=== PATIENT | female | born 1940 | race Caucasian/White ===

== ENCOUNTER 2016-06-25 23:40 | Inpatient (IN) | payer BC ==
--- OUTSIDE RECORDS SUMMARY | 2016-06-26 00:31 | XMS REPORT | Continuity of Care Document ---
:1940 Author Organization [facility] ([facility]) Address [address] [place] [address] Phone [phone] Care Team Providers Name Role Phone Sridhar Terrazas Primary Care Provider [phone] Source Comments This disclosure is being made pursuant to the Care Everywhere program, applicable federal and state laws, and may not contain all informaitonavailable regarding this patient.[facility] ([facility]) Active Allergies and Adverse Reactions Allergen Noted Date Severity Reactions Comments Codeine Phosphate 08/07/2008 Nausea & Vomiting Codeine Sulfate 08/07/2008 Nausea & Vomiting Hydrochlorothiazide 08/07/2008 OTHER Insomnia Iron 08/07/2008 OTHER Insomnia Latex 08/07/2008 Rash Moexipril 08/07/2008 Nausea & Vomiting Penicillins 08/07/2008 OTHER Insomnia Sulfamethoxazole-Trimethoprim 08/07/2008 Nausea & Vomiting Current Medications Prescription Sig. Disp. Refills Start Date End Date Status pregabalin (LYRICA) Take 200 mg by Active 200 mg capsule mouth 2 times daily. oxyCODONE-acetaminophe Take 1 tablet by Active n 10-325 mg per tablet mouth every 8 hours as needed for Pain. diphenoxylate-atropine Take 1 tablet by Active 2.5-0.025 mg per mouth 4 times tablet daily as needed for Diarrhea. ammonium lactate 12 % Apply topically 227 g 11 02/09/2016 Active lotion twice daily. Rub into affected area well. Wash legs daily with diluted Hibiclens. Ensure that the skin between toes is cleansed as well.Pat dry. Apply Lac-Hydrin lotion twice daily to bilateral lower extremities. Weave Interdry AG between the toes on both feet to help wick moisture. lisinopril 20 mg Take 1 tablet (20 30 tablet 11 02/10/2016 Active tablet mg total) by mouth daily. Active Problems Problem Noted Date Morbid obesity 02/03/2016 Cellulitis 02/02/2016 Weakness of right lower extremity 02/02/2016 Pulmonary embolus 10/01/2008 Social History Tobacco Use Types Packs/Day Years Used Date Former Smoker 1.5 3 Smokeless Tobacco: Never Used Tobacco Cessation:Counseling Given: No Comments:quit in Alcohol Use Drinks/Week oz/Week Comments No Last Filed Vital Signs Vital Sign Reading Time Taken Blood Pressure 152/86 02/10/2016 9:00 AM TELEPHONE STATION INSTALLER Pulse 73 02/10/2016 8:44 AM TELEPHONE STATION INSTALLER Temperature 36.8 C (98.3 F) 02/10/2016 8:44 AM TELEPHONE STATION INSTALLER Respiratory Rate 16 02/10/2016 9:00 AM TELEPHONE STATION INSTALLER Height 1.626 m (5' 4") 02/03/2016 12:05 AM TELEPHONE STATION INSTALLER Weight 115 kg (253 lb 8.5 oz) 02/03/2016 12:05 AM TELEPHONE STATION INSTALLER Body Mass Index 43.5 02/03/2016 12:05 AM TELEPHONE STATION INSTALLER Oxygen Saturation 92% 02/10/2016 8:44 AM TELEPHONE STATION INSTALLER Plan of Care Health Maintenance Due Date Last Done Comments Hepatitis B Vaccine (1 of 3 - Primary Series) 1940 Tdap Vaccine 06/15/1950 Lipid Disorder Screening 06/15/1957 Td Vaccine 06/15/1957 Mammogram 1979 Colonoscopy 06/15/1989 Zoster Vaccine 1999 Osteoporosis Screening (DXA Bone Density) 06/15/2004 Pneumococcal Vaccine (1 of 2 - PCV13) 06/15/2004 Influenza Vaccine: Seasonal (Season Ended) 2016 Results from Last 3 Months Not on file
--- OUTSIDE RECORDS SUMMARY | 2016-06-26 00:31 | XMS REPORT | Continuity of Care Document ---
:1940 Author Organization [facility] [place] [address] Care Team Providers Name Role Phone Gregory Abraham Primary Care Provider [phone] Source Comments This disclosure is being made pursuant to the [employer] program and maynot contain all information available regarding this patient.[facility] Active Allergies and Adverse Reactions Allergen Noted Date Severity Reactions Comments Bactrim 03/16/2015 Low Itching Chlorpheniramine Maleate 05/23/2016 Medium Unknown Codeine 03/16/2015 Other (See Comments) Hctz 03/16/2015 Other (See Comments) Iron 03/16/2015 Other (See Comments) Latex 05/23/2016 Medium Unknown Neurontin 03/16/2015 Other (See Comments) Penicillins 03/16/2015 Other (See Comments) Phenylpropanolamine 05/23/2016 Medium Unknown Sulfa Antibiotics 03/16/2015 Other (See Comments) Univasc 03/16/2015 Other (See Comments) Current Medications Be aware that medications may not be up to date as of this document. Alwaysverify current medications with the patient. Prescription Sig. Disp. Refills Start Date End Date Status potassium chloride Take 10 mEq Active (K-TAB, KLOR-CON) 10 by mouth 2 MEQ tablet (two) times daily. acetaminophen Take 500 mg Active (TYLENOL) 500 MG by mouth tablet every 6 (six) hours as needed for Pain. morphine (MS CONTIN) TK 1 T PO Q 0 07/25/2015 Active 15 MG extended 12 H release tablet LYRICA 200 MG capsule Take 200 mg 06/15/2015 Active by mouth 2 (two) times daily. vitamin B-12 Take 100 mcg Active (CYANOCOBALAMIN) 100 by mouth MCG tablet daily. cholecalciferol 96474 2 times a 24 capsule 0 08/24/2015 Active UNITS capsule weeks for 3 months diphenoxylate-atropin Take 1 tablet 30 tablet 1 05/20/2016 Active e (LOMOTIL) 2.5-0.025 by mouth 4 MG per tablet (four) times daily as needed for Diarrhea. losartan (COZAAR) 100 Take 100 mg Active MG tablet by mouth daily. lisinopril Take 20 mg by Active (PRINIVIL,ZESTRIL) 20 mouth daily. MG tablet oxyCODONE-acetaminoph Take 1 tablet 30 tablet 0 06/15/2016 Active en (PERCOCET) 10-325 by mouth MG per tablet every 8 (eight) hours as needed for Pain. allopurinol Take 1 tablet 90 tablet 2 06/15/2016 Active (ZYLOPRIM) 300 MG by mouth tablet daily. furosemide (LASIX) 20 Take 1 tablet 90 tablet 1 06/15/2016 Active MG tablet by mouth daily. allopurinol Take 300 mg Discontinued (ZYLOPRIM) 300 MG by mouth 7 tablet daily. furosemide (LASIX) 20 Take 20 mg by Discontinued MG tablet mouth daily. 7 oxyCODONE-acetaminoph Take 1 tablet 30 tablet 0 05/25/2016 Discontinued en (PERCOCET) 10-325 by mouth 7 MG per tablet every 8 (eight) hours as needed for Pain Earliest Fill Date: 05/25/16. oxyCODONE-acetaminoph Take 1 tablet 30 tablet 0 06/06/2016 Discontinued en (PERCOCET) 10-325 by mouth 7 MG per tablet every 8 (eight) hours as needed for Pain Earliest Fill Date: 06/06/16. clindamycin (CLEOCIN) Take 1 4 capsule 0 06/13/2016 Discontinued 150 MG capsule capsule by 7 mouth 4 (four) times daily as needed. Take ALL 4 tabs at once one hour prior to appt. clindamycin (CLEOCIN) Take 1 16 capsule 0 06/13/2016 150 MG capsule capsule by 7 mouth daily. Take ALL 4 tabs at once one hour prior to appt. allopurinol TAKE ONE 90 tablet 0 06/14/2016 Discontinued (ZYLOPRIM) 300 MG TABLET BY 7 tablet MOUTH ONCE DAILY Active Problems Problem Noted Date Essential hypertension, benign 05/23/2016 Anemia of chronic disease 05/23/2016 CKD (chronic kidney disease) 05/23/2016 Mixed hyperlipidemia 05/23/2016 Senile osteoporosis 08/24/2015 Osteoporosis 08/03/2015 Cervical subluxation 03/16/2015 Neck pain 03/16/2015 Cervical spondylosis without myelopathy 03/16/2015 Subluxation of C4-C5 cervical vertebrae 03/16/2015 Most Recent Encounters Date Type Specialty Providers Description 06/13/2016 Refill Family Medicine Sridhar Terrazas DO 06/13/2016 Refill Family Medicine Sarika Murdock RN Essential hypertension (Primary Dx); Gout of foot, unspecified cause, unspecified chronicity, unspecified laterality 06/13/2016 Refill Family Medicine Sarika Murdock RN 06/06/2016 Refill Family Medicine Pamella Salazar RN 05/25/2016 Refill Family Medicine Sarika Murdock RN 05/23/2016 Abstract Family Medicine Risa Quintanilla RN 05/20/2016 Refill Family Medicine Sarika Murdock RN Social History Tobacco Use Types Packs/Day Years Used Date Former Smoker Smokeless Tobacco: Never Used Alcohol Use Drinks/Week oz/Week Comments No 0 Standard drinks or equivalent 0.0 Last Filed Vital Signs Vital Sign Reading Time Taken Blood Pressure 132/82 08/21/2015 9:14 AM CDT Pulse 72 08/03/2015 10:57 AM CDT Temperature 36.3 C (97.4 F) 03/16/2015 1:03 PM SIDE HEMMER Respiratory Rate 18 03/16/2015 1:03 PM SIDE HEMMER Height 1.626 m (5' 4") 08/21/2015 9:14 AM CDT Weight 103.874 kg (229 lb) 08/21/2015 9:14 AM CDT Body Mass Index 39.29 08/21/2015 9:14 AM CDT Oxygen Saturation - - Plan of Care Date Type Specialty Providers Description 06/27/2016 Appointment Family Medicine Sridhar Terrazas V, [address] [place] [address] [phone] (Fax) Health Maintenance Due Date Last Done Comments Tetanus/Pertussis (1 - Tdap) 06/15/1958 Well Adult Visit 06/15/1989 Zoster Vaccine 60+ 1999 Pneumococcal Low/Medium Risk 65+ (1 of 2 - PCV13) 06/15/2004 Influenza Immunization (#1) 2015 Mammogram 08/13/2016 08/14/2015 Bone Density Completed 06/25/2015 Results from Last 3 Months Not on file
[2016-06-26 00:48] LABS: Hemoglobin 10.9 gm/dL (12.5-16.0); Mean Cell Volume 92.6 fl (78-100); Mean Corpuscular Hemoglobin 29.7 pg (27-31); Mean Corpuscular Hgb Conc 32.1 g/dl (32-36); Mean Platelet Volume 11.2 fl (6.0-9.5); Neutrophil # 13.3 K/mm3 (1.3-6.0); Neutrophil % 87.2 % (42-75.0); Platelet Count 213 K/mm3 (150-450); Red Blood Count 3.67 M/mm3 (4.2-5.4); White Blood Count 15.2 K/mm3 (4.0-10.5)
[2016-06-26 00:51] LABS: Urine Bilirubin Negative (NEGATIVE); Urine Blood 250 /ul (NEGATIVE); Urine Ketone Negative (NEGATIVE); Urine Nitrite Negative (NEGATIVE); Urine Protein 30 mg/dL (NEGATIVE); Urine Urobilinogen Normal (NORMAL)
[2016-06-26 00:54] LABS: Urine Appearance Slightly Cloudy; Urine Bacteria 3+; Urine Color Yellow; Urine RBC 0-5 /hpf (0-5); Urine WBC 25-50 /hpf (0-5)
[2016-06-26] MEDS ORDERED: NORMAL SALINE 1,000 ML IV ONE (00:58)
[2016-06-26] MEDS ORDERED: ACETAMINOPHEN 325 MG TABLET PO ONE (01:02)
[2016-06-26] MEDS ORDERED: ACETAMINOPHEN 325 MG TABLET ONE (01:03)
[2016-06-26] MEDS ORDERED: LEVOFLOXACIN/D5W 500 MG/100 ML BAG IV SCH (01:15)
[2016-06-26 01:18] LABS: Albumin * 3.2 gm/dl (3.4-5.0); Anion Gap 14.9 mmol/L (6.8-13.8); BUN/Creatinine Ratio 16.7 (9.0-21.6); Bilirubin, Total 0.3 mg/dL (0.0-1.1); Ca. Corrected For Albumin 9.4 mg/dL (8.4-10.2); Calcium * 9.1 mg/dL (7.9-10.9); Carbon Dioxide 26.9 mmol/L (24-32.6); Potassium 3.8 mmol/L (3.4-4.6); Total Protein 7.2 gm/dL (6.2-8.2)
--- NOTE | 2016-06-26 01:19 | ERNOTE ---
Medical Problem HPI - General Chief Complaint: General Assessment Time Seen by Provider: 06/25/16 23:46 - Immun/Allergies/Home Medications Immunizations: IMMUNIZATION HX Immunizations Up to Date Yes History of Influenza Vaccine Yes Hx Pneumococcal Vaccination Yes Allergies/Adverse Reactions: Allergies codeine [Codeine] Allergy (Unknown, Verified 06/26/16 01:16) Vomiting hydrochlorothiazide Allergy (Unknown, Verified 06/26/16 01:16) iron Allergy (Unknown, Verified 06/26/16 01:16) Vomiting moexipril HCl [From Univasc] Allergy (Unknown, Verified 06/26/16 01:16) Penicillins Allergy (Unknown, Verified 06/26/16 01:16) Sulfa (Sulfonamide Antibiotics) [Sulfa(Sulfonamide Antibiotics)] Allergy ( Unknown, Verified 06/26/16 01:16) Vomiting sulfamethoxazole [From Bactrim] Allergy (Unknown, Verified 06/26/16 01:16) trimethoprim [From Bactrim] Allergy (Unknown, Verified 06/26/16 01:16) Vomiting nitrofurantoin [From Macrobid] Allergy (Verified 06/26/16 01:16) nitrofurantoin macrocrystalline [From Macrobid] Allergy (Verified 06/26/16 01:16 ) phenazopyridine HCl [From Pyridium] Allergy (Verified 06/26/16 01:16) cefuroxime axetil [From Ceftin] Adverse Reaction (Verified 06/26/16 01:16) Vomiting ketorolac tromethamine [From Toradol] Adverse Reaction (Verified 06/26/16 01:16) Vomiting NSAIDS (Non-Steroidal Anti-Inflamma Adverse Reaction (Verified 06/26/16 01:16) Vomiting Home Medications: HOME MEDICATIONS Allopurinol 300 mg PO DAILY 03/03/13 [Last Taken 08/24/13] Losartan Potassium [Cozaar] 50 mg PO DAILY 03/03/13 [Last Taken 08/24/13] Potassium Chloride 10 meq PO BID 03/03/13 [Last Taken 08/24/13] Vitamin B Complex [B Complex] 0.5 each PO BID 09/21/13 [Last Taken 07/07/15] Cholestyramine/Sucrose [Questran Packet] 1 pkt PO TID 10/13/13 [Last Taken Unknown] Furosemide [Lasix] 20 mg PO DAILY 10/05/14 [Last Taken Unknown] Acetaminophen [Tylenol] 325 mg PO BID 07/08/15 [Last Taken 07/07/15] Ciprofloxacin HCl [Cipro] 500 mg PO BID #20 tab 09/12/15 [Last Taken Unknown] Ondansetron [Zofran Odt] 4 mg PO Q8H PRN #20 tab 09/12/15 [Last Taken Unknown] Tamsulosin HCl [Flomax] 0.4 mg PO DAILY #30 cap.er.24h 09/12/15 [Last Taken Unknown] Vitamin D3 09/12/15 [Last Taken Unknown] - Patient's Past Medical History Patient History - Medical: Anemia, Arthritis, Chronic Pain, Kidney stone, Obesity, Osteoarthritis, UTI'S, Other Patient History - Cardiac/Respiratory: No pertinent hx Patient History - Cancer: No Hx of Cancer Patient History - Surgical Procedures: Colonoscopy, D & C, Hysterectomy, Total Knee Replacement, Other Patient History - Other: Other - Family History Mother Family History - Medical: , No pertinent hx Family History - Cardiac/Respiratory: No pertinent hx Father Family History - Medical: , No pertinent hx Family History - Cardiac/Respiratory: No pertinent hx Brother Family History - Medical: No pertinent hx Family History - Cardiac/Respiratory: Myocardial Infarction - Social History Living Situations: home Abuse History: No History of abuse Psych History: No pertinent hx Does anyone smoke in the home?: No Smoking Status: Former smoker Alcohol Use: none Drug Use: none - Immunizations Immunizations Up to Date: Yes Hx Pneumococcal Vaccination: Yes History of Influenza Vaccine: Yes ED Progress - Results and Orders Patient's Lab Results:: I have reviewed the patient's lab results. - Vital Signs Patient's Vital Signs:: I have reviewed the patient's vital signs. Vital Signs: Vital Signs 06/25/16 06/26/16 06/26/16 23:56 00:34 01:10 Temperature 39 C H 37.4 C Pulse Rate 113 H 104 H 98 Respiratory 20 20 20 Rate Blood Pressure 186/81 164/73 161/63 O2 Sat by Pulse 94 93 96 Oximetry - X-Ray X-Ray #1 X-Ray: chest - Progress/Reassessment Chief Complaint: General Assessment Departure - Departure Clinical Impression: UTI (urinary tract infection) Qualifiers: Urinary tract infection type: acute cystitis Hematuria presence: with hematuria Qualified Code(s): N30.01 - Acute cystitis with hematuria Disposition: CH Condition: Stable Referrals: Sridhar Terrazas DO [Primary Care Provider] -
--- OUTSIDE RECORDS SUMMARY | 2016-06-26 01:23 | XMS REPORT | Continuity of Care Document ---
:1940 Author Organization [facility] ([facility]) Address [address] [place] [address] Phone [phone] Care Team Providers Name Role Phone Sridhar Terrazas Primary Care Provider [phone] Source Comments This disclosure is being made pursuant to the Care Everywhere program, applicable federal and state laws, and may not contain all informaitonavailable regarding this patient.[facility] ([facility]) Active Allergies and Adverse Reactions Allergen Noted [...] Taken Blood Pressure 152/86 02/10/2016 9:00 AM GEOPHYSICAL PROSPECTOR Pulse 73 02/10/2016 8:44 AM GEOPHYSICAL PROSPECTOR Temperature 36.8 C (98.3 F) 02/10/2016 8:44 AM GEOPHYSICAL PROSPECTOR Respiratory Rate 16 02/10/2016 9:00 AM GEOPHYSICAL PROSPECTOR Height 1.626 m (5' 4") 02/03/2016 12:05 AM GEOPHYSICAL PROSPECTOR Weight 115 kg (253 lb 8.5 oz) 02/03/2016 12:05 AM GEOPHYSICAL PROSPECTOR Body Mass Index 43.5 02/03/2016 12:05 AM GEOPHYSICAL PROSPECTOR Oxygen Saturation 92% 02/10/2016 8:44 AM GEOPHYSICAL PROSPECTOR Plan of Care Health Maintenance Due Date [...]
--- OUTSIDE RECORDS SUMMARY | 2016-06-26 01:23 | XMS REPORT | Continuity of Care Document ---
:1940 Author Organization [facility] [place] [address] Care Team Providers Name Role Phone Gregory Abraham Primary Care Provider [phone] Source Comments This disclosure is being made pursuant to the [employer] program and maynot contain all information available regarding this patient.[facility] Active Allergies and Adverse Reactions Allergen Noted [...] 100 by mouth MCG tablet daily. cholecalciferol 15481 2 times a 24 capsule 0 08/24/2015 [...] 36.3 C (97.4 F) 03/16/2015 1:03 PM RETAIL ACCOUNT REPRESENTATIVE Respiratory Rate 18 03/16/2015 1:03 PM RETAIL ACCOUNT REPRESENTATIVE Height 1.626 m (5' 4") 08/21/2015 9:14 AM CDT Weight 103.874 kg (229 lb) 08/21/2015 9:14 AM CDT Body Mass Index 39.29 08/21/2015 9:14 AM CDT Oxygen Saturation - - Plan of Care Date Type Specialty Providers Description 06/27/2016 Appointment Family Medicine Sridhar Terrazas V, [address] [place] [address] [phone] (Fax) Health Maintenance Due Date Last Done Comments Tetanus/Pertussis (1 - Tdap) 06/15/1959 Well Adult Visit 06/15/1989 Zoster Vaccine 60+ 1999 Pneumococcal Low/Medium Risk 65+ (1 of 2 - PCV13) 06/15/2004 Influenza Immunization (#1) 2015 Mammogram 08/13/2016 08/14/2015 Bone Density Completed 06/25/2015 Results from Last 3 Months Not on file
--- NOTE | 2016-06-26 03:20 | HP ---
Chief Complaint - Chief Complaint Date of Service: 06/26/16 Time of Service: 03:30 Chief Complaint: weakness History of Present Illness: Pt is a 76 year old female with a PMH of: gout, HTN, PE, renal calculi, frequent UTIs. She states that Giovanny (06/24/16) she had really bad LUQ pain that she describes going "all the way to her back bone." Since then she has progressively had more difficulty with walking. She states that her legs are really weak. LUQ pain, fever, and nausea. Denies dysuria, foul smelling urine, flank pain, vomiting, diarrhea, SOB, or CP. Nothing makes her symptoms better or worse. She is usually able to ambulate at home with the assistance of a walker. ER workup consisted of a UA with 3+ bacteria, 25-50 WBC, 500 leuko esterase, and 250 blood. Laboratory findings were as followed: WBC 15.2, H/H 10.9/34, Na+ 144, K+3.8, BUN/Creat 22/1.32, 0.8 lactic acid, all others were unremarkable. She was noted to be tachycardic at 112 and febrile at 39, BP 186/ 81. She was given Tylenol for her fever and started on IV levaquin for UTI, she will need to be admitted for further treatment and care, including IV antibiotic therapy. - Patient's Past Medical History Patient History - Medical: Anemia, Arthritis, Chronic Pain, Kidney stone, Obesity, Osteoarthritis, UTI'S, Other Patient History - Cardiac/Respiratory: Hypertension, Other - polio as a child Patient History - Cancer: No Hx of Cancer Patient History - Surgical Procedures: Colonoscopy, D & C, Hysterectomy, Total Knee Replacement - bilateral, Other, Orthopedic - right shoulder Patient History - Other: None LMP (females 10-50): Menopausal - Family History Mother Family History - Medical: , No pertinent hx Family History - Cardiac/Respiratory: No pertinent hx Family History - Cancer: Endometrial Father Family History - Medical: , No pertinent hx Family History - Cardiac/Respiratory: No pertinent hx Family History - Cancer: Lung Brother Family History - Medical: No pertinent hx, Diabetes Type 2 Family History - Cancer: Other Grandfather-Maternal Family History - Medical: Family History - Cardiac/Respiratory: Coronary Heart Disease - Social History Living Situations: home Abuse History: No History of abuse Psych History: No pertinent hx Does anyone smoke in the home?: No Smoking Status: Former smoker Have you smoked in the past 12 months: No Do you dip or chew tobacco: No Patient requests Smoking Cessation Consult: No Initiate information on Smoking Cessation: No Alcohol Use: none Drug Use: none - Immunizations Immunizations Up to Date: Yes Hx Pneumococcal Vaccination: Yes History of Influenza Vaccine: Yes Review Of Systems (GEN) - Review of Systems Generalized/Overall Review: Present: Weakness, Fever Respiratory: Present: No Symptoms Reported Cardiac: Present: No Symptoms Reported Abdominal: Present: Nausea, Abdominal Pain - LUQ Genitourinary: Present: Frequency Musculoskeletal: Present: Gout, Other - bilateral LE pain Neurological: Present: Weakness Skin: Present: Dryness, Other - erythema and warmth to bilateral LE states this is chronic Endocrine: Present: No Symptoms Reported Allergies/Adverse Reactions: Allergies Allergy/AdvReac Type Severity Reaction Status Date / Time codeine [Codeine] Allergy Unknown Vomiting Verified 06/26/16 01:16 hydrochlorothiazide Allergy Unknown Verified 06/26/16 01:16 iron Allergy Unknown Vomiting Verified 06/26/16 01:16 moexipril HCl [From Univasc] Allergy Unknown Verified 06/26/16 01:16 Penicillins Allergy Unknown Verified 06/26/16 01:16 Sulfa (Sulfonamide Allergy Unknown Vomiting Verified 06/26/16 01:16 Antibiotics) [Sulfa(Sulfonamide Antibiotics)] sulfamethoxazole Allergy Unknown Verified 06/26/16 01:16 [From Bactrim] trimethoprim [From Bactrim] Allergy Unknown Vomiting Verified 06/26/16 01:16 nitrofurantoin Allergy Verified 06/26/16 01:16 [From Macrobid] nitrofurantoin Allergy Verified 06/26/16 01:16 macrocrystalline [From Macrobid] phenazopyridine HCl Allergy Verified 06/26/16 01:16 [From Pyridium] cefuroxime axetil AdvReac Vomiting Verified 06/26/16 01:16 [From Ceftin] ketorolac tromethamine AdvReac Vomiting Verified 06/26/16 01:16 [From Toradol] NSAIDS (Non-Steroidal AdvReac Vomiting Verified 06/26/16 01:16 Anti-Inflamma Home Medications: HOME MEDICATIONS Allopurinol 300 mg PO DAILY 03/03/13 [Last Taken 06/25/16] Losartan Potassium [Cozaar] 50 mg PO DAILY 03/03/13 [Last Taken 06/25/16] Vitamin B Complex [B Complex] 0.5 each PO DAILY 09/21/13 [Last Taken 06/25/16] Furosemide [Lasix] 20 mg PO DAILY 10/05/14 [Last Taken 06/25/16] Chlorhexidine Gluconate [Periogard Oral Rinse 0.12%] 15 ml MM BID 06/26/16 [ Last Taken 06/25/16] Cyanocobalamin (Vitamin B-12) [Vitamin B12] 5,000 mcg PO DAILY 06/26/16 [Last Taken 06/25/16] oxyCODONE HCL/ACETAMINOPHEN [Percocet 10-325 mg Tablet] 1 each PO TID PRN [Last Taken Unknown] Exam - Exam Vital Signs: Vital Signs - Last Taken Temp 37.2 C 06/26/16 01:56 Pulse 94 06/26/16 01:56 Resp 22 H 06/26/16 01:56 BP 161/45 06/26/16 01:56 Pulse Ox 96 RA 06/26/16 01:56 Constitutional: Present: Alert, Oriented x3, Cooperative, No distress, Elderly, Overweight ENT Exam: Present: normal ENT inspection, hearing grossly normal Eye Exam: bilateral eye: normal inspection, PERRL Back Exam: Present: normal inspection, no CVA tenderness, no vertebral tenderness Respiratory: Present: chest non-tender, no respiratory distress, no accessory muscle use, decreased breath sounds Cardiovascular/Chest: Present: normal peripheral pulses, regular rate, rhythm, no chest tenderness, no edema, no gallop, no JVD, no murmur Peripheral Pulses: dorsalis-pedis (R): 2+, dorsalis-pedis (L): 2+, radial (R): 2 +, radial (L): 2+ Abdomen: Present: Normal bowel sounds, soft, nondistended, tender - LUQ Extremity: Present: normal range of motion, non-tender, calf tenderness, leg pain, other - erythema and warmth Skin Exam: Present: warm/dry, no cyanosis Lymphatic: Present: no adenopathy Neurologic: Present: no motor/sensory deficits, alert, normal mood/affect, oriented x 3 Appearance: Present: appropriate appearance, appropriate insight, neat, no memory impairment Eye contact: Present: cooperative, good eye contact, normal speech Thoughts: Present: normal thought pattern, no apparent hallucination Diagnostic Studies: Laboratory Results Laboratory Tests 06/26/16 06/26/16 06/26/16 00:35 00:40 00:40 WBC 15.2 H Hgb 10.9 L Hct 34.0 L Sodium 144 H Potassium 3.8 BUN 22 Creatinine 1.32 Est GFR (Non-Af Amer) 41 L D Lactic Acid, Venous Urine Protein 30 H Urine Ketones Negative Urine Blood 250 H Urine Nitrate Negative Ur Leukocyte Esterase 500 H Urine WBC 25-50 H Urine Bacteria 3+ H 06/26/16 00:45 WBC Hgb Hct Sodium Potassium BUN Creatinine Est GFR (Non-Af Amer) Lactic Acid, Venous 0.8 Urine Protein Urine Ketones Urine Blood Urine Nitrate Ur Leukocyte Esterase Urine WBC Urine Bacteria Assessment/Plan - Assessment/Plan (1) UTI (urinary tract infection) Assessment: Pt UA with 25-50 WBC, 3+bacteria, 500 leuko esterase, 250 blood, culture to follow. WBC elevated at 15.2, pt placed on 500mg IV levaquin daily. Pt history of renal stones, denies flank pain during examination. Plan: -Culture to follow -500mg IV levaquin Q24H Problem: Acute Qualifiers: Urinary tract infection type: acute cystitis Hematuria presence: with hematuria Qualified Code(s): N30.01 - Acute cystitis with hematuria (2) Abdominal pain Assessment: Pt with tenderness to palpation of RUQ that radiates to back which started this past Monday06/24/16. +nausea following examination. Will order CRP, amylase and lipase to r/o pancreatitis. Depending on laboratory results may need to follow up with CT imaging. WBC elevated at 15.2, pt has remained afebrile since admission. ALT/AST/alk phos WNL. Meets SIRS criteria with tachycardia, fever, leukocytosis, will start MIVF. Chest xray completed without any acute processes and blood cultures order per SIRS protocol. Plan: -CT abd w/w/o contrast -NS @150ml/hr -CRP -amylase/lipase -Zofran PRN for nausea Problem: Acute Qualifiers: Abdominal location: left upper quadrant Qualified Code(s): R10.12 - Left upper quadrant pain (3) Weakness of both lower extremities Assessment: Bilateral LE with chronic erythema, swelling, and warmth per pt. No edema present at this time but dose endorse calf tenderness, cannot exclude DVT, will order LE duplex to r/o. Unclear etiology of weakness could be due to UTI, DVT, or chronic gout, although pt denies joint tenderness during examination which makes this unlikely. Plan: -PT/OT -LE duplex Problem: Acute (4) Gout Assessment: Stable, continue allopurinol. Problem: Chronic Qualifiers: Gout site: foot Chronicity: chronic (5) HTN (hypertension) Assessment: BP slightly elevated, continue cozaar as ordered from home. If continues to remain elevated will need to make adjustments. Plan: -VS Q4 -Cozaar 50mg daily Problem: Chronic
[2016-06-26 06:45] LABS: CRP 24.7 mg/dL (0.0-0.9)
[2016-06-26] MEDS: ONDANSETRON HCL/PF 2 MG/ML VIAL IV PRN (07:09)
[2016-06-26] MEDS: NORMAL SALINE 1,000 ML IV PRN ×2 (07:29→14:21)
[2016-06-26] MEDS ORDERED: CHLORHEXIDINE GLUCONATE 480 ML BTL MM SCH (09:00)
[2016-06-26] MEDS ORDERED: FUROSEMIDE 20 MG TABLET PO SCH (09:00)
[2016-06-26] MEDS ORDERED: DIATRIZOATE MEGLU/DIATRIZO SOD 30 ML BTL PO ONE ×2 (09:37→14:50)
[2016-06-26] MEDS: ACETAMINOPHEN 325 MG TABLET PO PRN (15:00)
[2016-06-26] MEDS ORDERED: FUROSEMIDE 10 MG/ML VIAL IV ONE (16:21)
[2016-06-26] MEDS ORDERED: SPIRONOLACTONE 25 MG TABLET PO ONE (16:22)
[2016-06-26] MEDS ORDERED: FUROSEMIDE 10 MG/ML VIAL ONE (16:22)
[2016-06-26] MEDS ORDERED: SPIRONOLACTONE 25 MG TABLET ONE (16:23)
[2016-06-26] MEDS ORDERED: LEVOFLOXACIN/D5W 250 MG/50 ML BAG IV SCH ×2 (18:00→19:30)
[2016-06-26] MEDS: LOSARTAN POTASSIUM 50 MG TABLET PO SCH (18:21)
[2016-06-26] MEDS: CYANOCOBALAMIN 1,000 MCG TABLET PO SCH (18:22)
[2016-06-26] MEDS: ALLOPURINOL 300 MG TABLET PO SCH (18:22)
[2016-06-26] MEDS: VITAMIN B COMP W-C 1 TAB TABLET PO SCH (18:22)
[2016-06-26] MEDS: CHLORHEXIDINE GLUCONATE 15 ML UDC MM SCH ×2 (18:22→20:30)
[2016-06-26] MEDS: ENOXAPARIN SODIUM 40 MG/0.4 ML SYRG SC SCH (18:48)
[2016-06-26 21:24] LABS: Albumin * 2.8 gm/dl (3.4-5.0); Anion Gap 13.8 mmol/L (6.8-13.8); BUN/Creatinine Ratio 12.5 (9.0-21.6); Bilirubin, Total 0.4 mg/dL (0.0-1.1); Ca. Corrected For Albumin 8.9 mg/dL (8.4-10.2); Calcium * 8.3 mg/dL (7.9-10.9); Carbon Dioxide 26.1 mmol/L (24-32.6); Potassium 3.9 mmol/L (3.4-4.6); Total Protein 7.1 gm/dL (6.2-8.2)
[2016-06-26] MEDS: POTASSIUM CHLORIDE 20 MEQ in DEXTROSE 5%-0.5 NORMAL SALINE 990 ML IV SCH (23:39)
[2016-06-27 05:47] LABS: Hemoglobin 9.8 gm/dL (12.5-16.0); Mean Corpuscular Hemoglobin 29.1 pg (27-31); Mean Corpuscular Hgb Conc 31.6 g/dl (32-36); Mean Platelet Volume 12.4 fl (6.0-9.5); Neutrophil # 9.9 K/mm3 (1.3-6.0); Neutrophil % 81.5 % (42-75.0); Platelet Count 168 K/mm3 (150-450); Red Blood Count 3.37 M/mm3 (4.2-5.4); Red Cell Distribution Width 17.5 % (11.5-14.0); White Blood Count 12.1 K/mm3 (4.0-10.5)
--- NOTE | 2016-06-27 05:57 | PN ---
Subjective - Date and Time Seen Date: 06/27/16 Time: 05:54 Subjective Narrative: Pt reports feeling well this am. Still endorses bilateral lower extremity weakness, was able to sit up at side of bed yesterday. PT to see today. Reports improvement in back pain. Objective - Review of Systems Generalized/Overall Review: Reports: Weakness EENTM: Reports: No Symptoms Reported Respiratory: Reports: No Symptoms Reported Cardiac: Reports: No Symptoms Reported Abdominal: Reports: No Symptoms Reported Genitourinary Symptoms: Reports: No Symptoms Reported Musculoskeletal Complaints: Reports: Other - LE pain Neurological: Reports: No Symptoms Reported Skin: Reports: No Symptoms Reported Endocrine: Reports: No Symptoms Reported - Vitals Vitals: Last Vital Signs Temp 37.1 C 06/26/16 23:16 Pulse 80 06/26/16 23:16 Resp 18 06/26/16 23:16 BP 137/52 06/26/16 23:16 Pulse Ox 91 06/26/16 23:16 - Abnormal Lab Findings Abnormal Lab Findings: Abnormal Lab Results 06/26/16 Range/Units 21:05 Est GFR (Non-Af Amer) 43 L (60-130) mL/min Random Glucose 112 H (70-110) mg/dL Albumin 2.8 L (3.4-5.0) gm/dl - Exam Constitutional: Present: Alert - overall very poor historian, Oriented x3, Cooperative, No distress, Elderly, Overweight ENT Exam: Present: normal ENT inspection, hearing grossly normal Respiratory: Present: chest non-tender, no respiratory distress, no accessory muscle use, decreased breath sounds Cardiovascular/Chest: Present: normal peripheral pulses, regular rate, rhythm, no chest tenderness, no gallop, no JVD, no murmur Abdomen: Present: Normal bowel sounds, soft, nontender, nondistended, no rebound tenderness, no hepatospenomegaly Extremity: Present: normal range of motion, lower extremity edema, leg pain Skin Exam: Present: normal color, warm/dry, no cyanosis Neurologic: Present: no motor/sensory deficits, alert, normal mood/affect, oriented x 3 Appearance: Present: appropriate appearance, appropriate insight Eye contact: Present: cooperative, good eye contact, normal speech Thoughts: Present: normal thought pattern, no apparent hallucination Cauti Physician Documentation - Urinary Catheter Management Urethral (Ramírez) Urethral Indwelling: Yes Reason for Continuing Indwelling Catheter: Measure accurate output Date of Insertion: 06/26/16 Time of Insertion: 00:32 Assessment/Plan - Problems/Diagnosis (1) Pyelonephritis, acute Problem: Acute Narrative: Ct yesterday revealed bilateral renal cyst, left hydronephrosis without definable stone, recommending Urology consult. Differential dx include recently passed stone or left pyelonephritis. Urology not here until Monday unfortunately, will call today for recommendations. Orders to strain all urine. Yesterday evening with slow urine output and volume overload, received 40mg IV lasix and 25mg spironolactone. Diuresed well with 1800 out since 5pm yesterday evening. Preliminary BC with numerous gram neg bacilli, awaiting final read. Levaquin increased from 500mg to 750mg IV daily. Pt has remained afebrile. Pending laboratory work this am. (2) UTI (urinary tract infection) Problem: Acute Qualifiers: Urinary tract infection type: acute cystitis Hematuria presence: with hematuria Narrative: See above with pyelonephritis. (3) Weakness of both lower extremities Problem: Acute Narrative: Pt still c/o LE weakness this am. Venous duplex yesterday did not reveal DVT, however examination was limited d/t. Will order JARVIS hose to assist with venous return, PT/OT ordered for evaluation today. (4) Gout Problem: Chronic Qualifiers: Gout site: foot Chronicity: chronic Narrative: Stable, continue allopurinol. (5) HTN (hypertension) Problem: Chronic Narrative: Stable, BP remain 140's-130's, continue Cozaar.
[2016-06-27 06:00] LABS: Anion Gap 9.9 mmol/L (6.8-13.8); BUN/Creatinine Ratio 12.4 (9.0-21.6); Calcium * 8.2 mg/dL (7.9-10.9); Carbon Dioxide 27.7 mmol/L (24-32.6); Estimated Creat Clear 33.6; Potassium 3.6 mmol/L (3.4-4.6)
[2016-06-27] MEDS: CYANOCOBALAMIN 1,000 MCG TABLET PO SCH (08:55)
[2016-06-27] MEDS: ALLOPURINOL 300 MG TABLET PO SCH (08:56)
[2016-06-27] MEDS: LEVOFLOXACIN/D5W 750 MG/150 ML BAG IV SCH (08:56)
[2016-06-27] MEDS: VITAMIN B COMP W-C 1 TAB TABLET PO SCH (08:56)
[2016-06-27] MEDS: LOSARTAN POTASSIUM 50 MG TABLET PO SCH (08:56)
[2016-06-27] MEDS: CHLORHEXIDINE GLUCONATE 15 ML UDC MM SCH ×2 (08:57→20:09)
[2016-06-27] MEDS: POTASSIUM CHLORIDE 20 MEQ in DEXTROSE 5%-0.5 NORMAL SALINE 990 ML IV SCH (11:28)
[2016-06-27 14:50] LABS: Iron 14 mcg/dL (35-120); Transferrin Sat. (% Sat.) 5 % (15-55)
[2016-06-27] MEDS: ENOXAPARIN SODIUM 40 MG/0.4 ML SYRG SC SCH (17:14)
[2016-06-28] MEDS: POTASSIUM CHLORIDE 20 MEQ in DEXTROSE 5%-0.5 NORMAL SALINE 990 ML IV SCH (01:20)
[2016-06-28 05:44] LABS: Hematocrit 29.7 % (37.0-47.0); Hemoglobin 9.5 gm/dL (12.5-16.0); Mean Cell Volume 91.7 fl (78-100); Mean Corpuscular Hemoglobin 29.3 pg (27-31); Neutrophil # 6.4 K/mm3 (1.3-6.0); Neutrophil % 74.5 % (42-75.0); Platelet Count 176 K/mm3 (150-450); Red Blood Count 3.24 M/mm3 (4.2-5.4); Red Cell Distribution Width 17.1 % (11.5-14.0); White Blood Count 8.5 K/mm3 (4.0-10.5)
[2016-06-28 06:07] LABS: Albumin * 2.3 gm/dl (3.4-5.0); Anion Gap 10.8 mmol/L (6.8-13.8); Bilirubin, Total 0.2 mg/dL (0.0-1.1); Ca. Corrected For Albumin 9.5 mg/dL (8.4-10.2); Calcium * 8.5 mg/dL (7.9-10.9); Carbon Dioxide 27.1 mmol/L (24-32.6); Potassium 3.9 mmol/L (3.4-4.6); Total Protein 6.3 gm/dL (6.2-8.2)
[2016-06-28] MEDS: LEVOFLOXACIN/D5W 750 MG/150 ML BAG IV SCH (08:58)
[2016-06-28] MEDS: LOSARTAN POTASSIUM 50 MG TABLET PO SCH (08:59)
[2016-06-28] MEDS: ALLOPURINOL 300 MG TABLET PO SCH (08:59)
[2016-06-28] MEDS: CYANOCOBALAMIN 1,000 MCG TABLET PO SCH (08:59)
[2016-06-28] MEDS: VITAMIN B COMP W-C 1 TAB TABLET PO SCH (08:59)
--- NOTE | 2016-06-28 09:34 | PN ---
Subjective - Date and Time Seen Date: 06/28/16 Time: 09:24 Subjective Narrative: c/o mild LT sided back pain and bilateral leg pain. Was able to ambulate 36 feet. Denies other problems. Very poor historian. Objective - Review of Systems Generalized/Overall Review: Reports: Weakness. Denies: Chills, Fever Respiratory: Denies: Cough, Shortness of Breath Cardiac: Denies: Chest Pain, Edema - Vitals Vitals: Vital Signs Temp 37 C 06/28/16 06:56 Pulse 62 06/28/16 08:59 Resp 18 06/28/16 06:56 BP 152/62 06/28/16 08:59 Pulse Ox 94 06/28/16 06:56 - Abnormal Lab Findings Abnormal Lab Findings: Lab Results 06/26/16 06/28/16 00:40 05:25 WBC 15.2 H 8.5 D Hgb 10.9 L 9.5 L Hct 34.0 L 29.7 L Plt Count 213 176 06/26/16 06/28/16 00:40 05:25 Plasma Sodium 139 139 Potassium 3.8 3.9 Chloride 106 105 Carbon Dioxide 26.9 27.1 BUN 22 15 Creatinine 1.32 1.09 Est GFR (Non-Af Amer) 41 L D 53 L 06/27/16 05:00 Iron 14 L TIBC 278 Transferrin % Sat 5 L Microbiology 06/26/16 00:30 Urine,Catheterized Urine Culture - Final Proteus Mirabilis 06/26/16 00:45 Blood Blood Culture - Preliminary Gram Negative Bacilli - Exam Constitutional: Present: Elderly, Obese - alert, in NAD. ENT Exam: Present: hearing grossly normal, moist mucous membranes Respiratory: Present: lungs clear, normal breath sounds, no accessory muscle use Cardiovascular/Chest: Present: regular rate, rhythm. Absent: tachycardia Abdomen: Present: Normal bowel sounds, soft, nontender, obese Extremity: Present: normal range of motion, normal inspection, no pedal edema Skin Exam: Present: warm/dry, pallor Eye contact: Present: cooperative, good eye contact Cauti Physician Documentation - Urinary Catheter Management Urethral (Ramírez) Urethral Indwelling: No Date of Insertion: 06/26/16 Time of Insertion: 00:32 Assessment/Plan Plan Narrative: 1. Bacteremia: 1 out of 2 blood cultures positive for gram-negative bacilli.[Including Gram stain.] ID and ASHVIN pending. Levaquin 750 mg IV and day #3. 2. UTI: C and S: Proteus mirabilis sensitive to Levaquin. Urine being strained for stones. 3. LT sided mild hydronephrosis: With perinephric stranding on CT scan done 06/26/2016. Calcifications present within LT kidney. No evidence of high-grade obstruction as contrast passes through. Urology on consult; patient will be seen on 06/29/16. 4. Iron deficiency anemia: T sat 5%; patient on B12 daily. Will be given Feraheme IV. Obtain colonoscopy reports from other facilities. 5. Hypertension: On losartan 50 mg daily- May require twice a day dosing to prevent progression of CKD. 6. CKD stage III: GFR improved from 43 ml/min[06/26/16] to 53 ml/min[06/28/16]. 7. Generalized weakness: Multifactorial due to anemia, DJD, UTI. Continue with OT/ PT.
[2016-06-28] MEDS: CHLORHEXIDINE GLUCONATE 15 ML UDC MM SCH ×3 (09:53→20:59)
[2016-06-28] MEDS ORDERED: FERUMOXYTOL 30 MG/ML VIAL IV ONE (10:00)
[2016-06-28] MEDS ORDERED: FERUMOXYTOL 510 MG in NORMAL SALINE 100 ML IV ONE (10:00)
[2016-06-28] MEDS: SACCHAROMYCES BOULARDII 250 MG CAPSULE PO SCH ×2 (11:04→20:58)
[2016-06-28] MEDS: CHOLECALCIFEROL 5,000 UNIT TABLET PO SCH (12:42)
[2016-06-28] MEDS ORDERED: IRON SUCROSE COMPLEX 500 MG in NORMAL SALINE 250 ML IV ONE (14:00)
[2016-06-28] MEDS: ACETAMINOPHEN 325 MG TABLET PO PRN (15:01)
[2016-06-28] MEDS: ENOXAPARIN SODIUM 40 MG/0.4 ML SYRG SC SCH (18:09)
--- NOTE | 2016-06-29 06:30 | CONS ---
HPI - History of Present Illness Initial Comments: 76-year-old female with severe left-sided flank pain fevers chills and radiographic imaging with left hydroureteronephrosis and bilateral renal stones. No obvious obstructing stone on the left. Urine and one blood culture positive for Proteus. White count was initially elevated has subsequently normalized. 06/29 CT FM: Bilateral renal stones, fairly significant left hydroureteronephrosis with transition point proximally and perinephric stranding Location: Left flank Duration: Days Severity/Stage: Currently moderate Associated Sx's: Did have fevers chills and nausea Modifying factors: Better since IV antibiotics Quality: Was colicky now all ache Past medical history: Includes hypertension, gout, PE, stones Past surgical history: Includes hysterectomy, no prior stone surgery Family history: Noncontributory Social history: Nonsmoker Review of systems: General: No more fevers or chills, nausea resolved. Some fatigue Lungs: No SOB Heart: No chest pain GI: Did have some nausea and left upper quadrant discomfort. Musculoskeletal: some aches and pains : Does have some urgency frequency 14 point review of systems otherwise negative, important positives noted Allergies/Adverse Reactions: Allergies codeine [Codeine] Allergy (Unknown, Verified 06/26/16 01:16) Vomiting hydrochlorothiazide Allergy (Unknown, Verified 06/26/16 01:16) iron Allergy (Unknown, Verified 06/26/16 01:16) Vomiting moexipril HCl [From Univasc] Allergy (Unknown, Verified 06/26/16 01:16) Penicillins Allergy (Unknown, Verified 06/26/16 01:16) Sulfa (Sulfonamide Antibiotics) [Sulfa(Sulfonamide Antibiotics)] Allergy ( Unknown, Verified 06/26/16 01:16) Vomiting sulfamethoxazole [From Bactrim] Allergy (Unknown, Verified 06/26/16 01:16) trimethoprim [From Bactrim] Allergy (Unknown, Verified 06/26/16 01:16) Vomiting nitrofurantoin [From Macrobid] Allergy (Verified 06/26/16 01:16) nitrofurantoin macrocrystalline [From Macrobid] Allergy (Verified 06/26/16 01:16 ) phenazopyridine HCl [From Pyridium] Allergy (Verified 06/26/16 01:16) cefuroxime axetil [From Ceftin] Adverse Reaction (Verified 06/26/16 01:16) Vomiting ketorolac tromethamine [From Toradol] Adverse Reaction (Verified 06/26/16 01:16) Vomiting NSAIDS (Non-Steroidal Anti-Inflamma Adverse Reaction (Verified 06/26/16 01:16) Vomiting Home Medications: Home Medications Medication Instructions Recorded Last Taken Allopurinol 300 mg PO DAILY 03/03/13 06/25/16 Losartan Potassium [Cozaar] 50 mg PO DAILY 03/03/13 06/25/16 Vitamin B Complex [B Complex] 0.5 each PO DAILY 09/21/13 06/25/16 Furosemide [Lasix] 20 mg PO DAILY 10/05/14 06/25/16 Chlorhexidine Gluconate [Periogard 15 ml MM BID 06/26/16 06/25/16 Oral Rinse 0.12%] Cyanocobalamin (Vitamin B-12) 5,000 mcg PO DAILY 06/26/16 06/25/16 [Vitamin B12] oxyCODONE HCL/ACETAMINOPHEN 1 each PO TID PRN 06/26/16 Unknown [Percocet 10-325 mg Tablet] - Patient's Past Medical History Patient History - Medical: Anemia, Arthritis, Chronic Pain, Kidney stone, Obesity, Osteoarthritis, UTI'S, Other Patient History - Cardiac/Respiratory: Hypertension, Other - polio as a child Patient History - Cancer: No Hx of Cancer Patient History - Surgical Procedures: Colonoscopy, D & C, Hysterectomy, Total Knee Replacement - bilateral, Other, Orthopedic - right shoulder Patient History - Other: None LMP (females 10-50): Menopausal - Family History Mother Family History - Medical: , No pertinent hx Family History - Cardiac/Respiratory: No pertinent hx Family History - Cancer: Endometrial Father Family History - Medical: , No pertinent hx Family History - Cardiac/Respiratory: No pertinent hx Family History - Cancer: Lung Brother Family History - Medical: No pertinent hx, Diabetes Type 2 Family History - Cardiac/Respiratory: Myocardial Infarction Family History - Cancer: Other Grandfather-Maternal Family History - Medical: Family History - Cardiac/Respiratory: Coronary Heart Disease - Social History Living Situations: home Abuse History: No History of abuse Psych History: No pertinent hx Does anyone smoke in the home?: No Smoking Status: Former smoker Have you smoked in the past 12 months: No Do you dip or chew tobacco: No Patient requests Smoking Cessation Consult: No Initiate information on Smoking Cessation: No Alcohol Use: none Drug Use: none - Immunizations Immunizations Up to Date: Yes Hx Pneumococcal Vaccination: Yes History of Influenza Vaccine: Yes Procedures APPLICATION OF SPLINT (12/01/06) [[facility]] OF THE KIDNEY, URETER AND/OR BLADDER (10/24/05) Medications - Medications Current Medications: Current Medications Acetaminophen (Tylenol) 650 mg PO Q6H PRN PRN Reason: Mild pain Stop: 07/26/16 14:51 Last Admin: 06/28/16 15:01 Dose: 650 mg Allopurinol (Zyloprim) 300 mg PO DAILY CURTIS Stop: 07/26/16 09:01 Last Admin: 06/28/16 08:59 Dose: 300 mg Chlorhexidine Gluconate (Periogard Oral Rinse 0.12%) 15 ml MM BID CURTIS Stop: 07/26/16 09:01 Last Admin: 06/28/16 20:59 Dose: 15 ml Cholecalciferol (Vitamin D) 10,000 unit PO DAILY [facility] Stop: 07/28/16 12:01 Last Admin: 06/28/16 12:42 Dose: 10,000 unit Cyanocobalamin (Vitamin B-12) 5,000 mcg PO DAILY [facility] Stop: 07/26/16 09:01 Last Admin: 06/28/16 08:59 Dose: 5,000 mcg Enoxaparin Sodium (Lovenox) 40 mg SC Q24H CURTIS Stop: 07/26/16 18:01 Last Admin: 06/28/16 18:09 Dose: 40 mg Levofloxacin/Dextrose (Levaquin) 750 mg in 150 mls @ 100 mls/hr IV Q24H CURTIS PRN Reason: Protocol Stop: 07/27/16 09:01 Last Infusion: 06/28/16 10:28 Dose: Infused Losartan Potassium (Cozaar) 50 mg PO DAILY CURTIS Stop: 07/26/16 09:01 Last Admin: 06/28/16 08:59 Dose: 50 mg Ondansetron HCl (Zofran) 4 mg IV Q4H PRN PRN Reason: Nausea Stop: 07/26/16 05:59 Last Admin: 06/26/16 07:09 Dose: 4 mg Saccharomyces Boulardii (Florastor) 250 mg PO BID CURTIS Stop: 07/28/16 10:01 Last Admin: 06/28/16 20:58 Dose: 250 mg Vitamin B Complex/Vitamin C (Vitabee W/C) 0.5 tab PO DAILY [facility] Stop: 07/26/16 09:01 Last Admin: 06/28/16 08:59 Dose: 0.5 tab Physical Examination - Exam Narrative: General: Nontoxic, does not appear to be in any acute distress currently Psych: Alert and oriented x3 HEENT: EOM grossly intact Lungs: Respirations unlabored, clear Abdomen: Obese but otherwise benign Neuro: no focal deficits Extremities: Moves all 4 without difficulty Heart: Regular Skin: No obvious rashes Back: Significant left CVA tenderness concerning. Vital Signs: Vital Signs - Last Taken Temp 97.0 F L 06/29/16 02:51 Pulse 70 06/29/16 02:51 Resp 18 06/29/16 02:51 BP 149/64 06/29/16 02:51 Pulse Ox 94 06/29/16 02:51 O2 Oxygen Delivery Method Room Air - Results and Findings: Narrative: Left pyelonephritis with positive blood cultures and radiographic evidence of left hydroureteronephrosis with transition point: Patient has improved clinically fevers gone, white count improved however still with left CVA tenderness, concenring.. Has renal stones with high probability of colonization. My recommendation would be to proceed with cystoscopy and retrogrades with consideration of left stent depending on the retrograde. This is her 2nd episode. Patient agreeable. Surgical risk would include bleeding/infection including small possibility of getting worse before getting better/injury to ureter including stricture/ evulsion and perforation. Typical stent symptoms also discussed. Would like to proceed Lab/Microbiology results last 24 hrs: Culture 06/26/16 15:00 Blood Culture - Preliminary Blood NO GROWTH AFTER 48 HOURS
[2016-06-29] MEDS ORDERED: NORMAL SALINE 1,000 ML IV STA (09:20)
[2016-06-29] MEDS: LEVOFLOXACIN/D5W 750 MG/150 ML BAG IV SCH (09:37)
[2016-06-29] MEDS: SACCHAROMYCES BOULARDII 250 MG CAPSULE PO SCH ×2 (09:38→20:43)
[2016-06-29] MEDS: CHLORHEXIDINE GLUCONATE 15 ML UDC MM SCH ×2 (09:38→20:43)
[2016-06-29] MEDS: ALLOPURINOL 300 MG TABLET PO SCH (09:38)
[2016-06-29] MEDS: VITAMIN B COMP W-C 1 TAB TABLET PO SCH (09:38)
[2016-06-29] MEDS: CYANOCOBALAMIN 1,000 MCG TABLET PO SCH (09:38)
[2016-06-29] MEDS: LOSARTAN POTASSIUM 50 MG TABLET PO SCH (09:38)
[2016-06-29] MEDS: CHOLECALCIFEROL 5,000 UNIT TABLET PO SCH (09:38)
[2016-06-29] MEDS: ACETAMINOPHEN 325 MG TABLET PO PRN ×2 (09:43→15:51)
[2016-06-29] MEDS ORDERED: RINGERS SOLUTION,LACTATED 1,000 ML IV ONE ×2 (13:05→13:50)
--- NOTE | 2016-06-29 13:09 | PN ---
Subjective - Date and Time Seen Date: 06/29/16 Time: 13:05 Subjective Narrative: continues to have back pain on LT side; overall feels better. seen by PT. Objective - Review of Systems Generalized/Overall Review: Reports: Weakness. Denies: Chills, Fever Respiratory: Denies: Cough, Shortness of Breath Cardiac: Denies: Chest Pain, Edema Musculoskeletal Complaints: Reports: Back Pain - and lower leg pain - Vitals Vitals: Last Vital Signs Temp 36.1 C L 06/29/16 08:34 Pulse 70 06/29/16 09:38 Resp 18 06/29/16 08:34 BP 149/64 06/29/16 09:38 Pulse Ox 94 06/29/16 08:34 - Exam Constitutional: Present: Elderly, Obese - alert and oriented x3; poor historian ENT Exam: Present: hearing grossly normal, other - poor dentition Neck: Present: normal inspection, trachea midline Respiratory: Present: lungs clear, normal breath sounds. Absent: no accessory muscle use Cardiovascular/Chest: Present: regular rate, rhythm. Absent: tachycardia Abdomen: Present: Normal bowel sounds, soft, nontender, obese Extremity: Present: normal inspection, no pedal edema - vertical scars on both knees c/w TKA's Skin Exam: Present: warm/dry, pallor Eye contact: Present: cooperative, good eye contact, normal speech Cauti Physician Documentation - Urinary Catheter Management Urethral (Ramírez) Urethral Indwelling: No Date of Insertion: 06/26/16 Time of Insertion: 00:32 Assessment/Plan Plan Narrative: 1. Bacteremia: 1 out of 2 blood cultures and urine positive for gram-negative bacilli- Proteus Mirabilis. Day #4 Levofloxin 750 mg IV 2. UTI: see above 3. LT sided mild hydronephrosis: With perinephric stranding on CT scan done 06/26/2016. Calcifications present within LT kidney. No evidence of high-grade obstruction as contrast passes through. Seen by Dr. Em [ Urologist] - scheduled for Cystoscopy w/ retrogrades and possible LT ureteral stent placement on 06/29/16. 4. Iron deficiency anemia: T sat 5%; patient on B12 daily. Venofer IV given on 06/28/16. Colonoscopy done in 2012 - scattered diverticulosis. 5. Hypertension: On losartan 50 mg daily- May require twice a day dosing to prevent progression of CKD. 6. CKD stage III: GFR improved from 43 ml/min[06/26/16] to 53 ml/min[06/28/16]. Rpt labs in AM. 7. Generalized weakness: Multifactorial due to anemia, DJD, UTI. Continue with PT.
--- NOTE | 2016-06-29 13:50 | OR ---
Operative Report - Dictated Report Narrative: Location: Main OR Anesthesia: General Surgeon: Dr. Em Preoperative diagnosis: Left hydronephrosis with pyelonephritis Postoperative diagnosis: Same, filling defects in mid ureter Procedure: #1 Cystoscopy with bladder washing for cytology and culture and Bilateral retrograde pyelograms #2 left 6x26 double j stent Indications: 76-year-old female with second round of left-sided pyelonephritis. Imaging revealed renal stones, stranding and hydroureteronephrosis to the mid ureter where transition point was present. No obvious stone in the ureter. White count and fevers improved with antibiotics however CVA tenderness persisted. Discussed options and elected to proceed with above-mentioned procedure. Description: Consent obtained. Patient brought to the operating room where general endotracheal anesthesia was induced. Placed in the dorsal lithotomy position. Prepped and draped. Timeout taken. Rigid cystoscope introduced into the bladder with ease and quick cystoscopy revealed no tumors, stones or suspicious lesions . Bladder still with debris and evidence of nonspecific cystitis and some cystitis cystica type lesions. Left ureter looked a bit more different than the right. Bladder washing was obtained sent for cytology and culture. Bilateral retrogrades obtained and interpreted by Dr. Luna. Right ureter identified intubated with 5 Egyptian catheter and right retrograde obtained. 5-7 mL of Isovue was injected. Distal mid and proximal ureter delicate without filling defects or hydronephrosis. There were a couple small areas of nonspecific narrowing but I do not think there clinically significant strictures. Upper collecting system was not hydronephrotic with delicate calyces and no evidence of obstruction. I could not outline one of the calyces but the rest looked just fine. There was prompt drainage upon removal. Left ureter identified intubated with 5 Egyptian catheter and left retrograde obtained. Distal ureter looked okay until about the mid ureter where there were 3 separate filling defects within the ureter followed by a transition point where the ureter was a bit more narrow. Proximal ureter was okay and the upper collecting system did look hydronephrotic I would say mild to moderate in severity. I advanced the 5 Egyptian catheter to the area of the filling defects and aspirated to make sure these were not air bubbles and indeed this was the case. I re-injected contrast in a remain as permanent filling defects within the ureter. Not sure if stones migrated or something different causing the radiographic finding. Solo wire was placed and there was prompt drainage of infection appearing type urine with debris 6 x 26 double-J stent was then placed over the safety wire under fluoroscopic guidance with good curls in the kidney and bladder. Specimen: Washing for cytology and culture. EBL: 0 ml Condition: tolerated procedure Important findings: Abnormal left retrograde with filling defects possibly representing migration of stone or something else with radiographic evidence of obstruction and visual evidence of persistent infection on that side. Successful 6 Egyptian stent placement. Follow-up: Patient susceptible to quinolones which gives us a good outpatient therapy option. Stent will remain indwelling and she should receive a total of 10-14 days of appropriate antibiotic therapy. She should be kept overnight with white count rechecked in the morning. If no fevers chills and white count remains well should be okay for outpatient therapy my plan being to proceed with formal left sided ureteroscopy with possible laser lithotripsy, possible biopsy and possible stent replacement.
[2016-06-29] MEDS: ENOXAPARIN SODIUM 40 MG/0.4 ML SYRG SC SCH (17:19)
[2016-06-29] MEDS ORDERED: LOSARTAN POTASSIUM 50 MG TABLET PO ONE (17:30)
[2016-06-29] MEDS: CEFDINIR 300 MG CAPSULE PO SCH (20:43)
[2016-06-29] MEDS ORDERED: NORMAL SALINE 1,000 ML IV PRN (22:45)
[2016-06-30] MEDS: ONDANSETRON HCL/PF 2 MG/ML VIAL IV PRN (08:54)
[2016-06-30] MEDS ORDERED: LOSARTAN POTASSIUM 50 MG TABLET PO SCH (09:00)
[2016-06-30 09:34] LABS: Hematocrit 34.4 % (37.0-47.0); Hemoglobin 11.1 gm/dL (12.5-16.0); Mean Cell Volume 90.8 fl (78-100); Mean Corpuscular Hemoglobin 29.3 pg (27-31); Mean Corpuscular Hgb Conc 32.3 g/dl (32-36); Mean Platelet Volume 10.5 fl (6.0-9.5); Neutrophil # 6.3 K/mm3 (1.3-6.0); Neutrophil % 71.8 % (42-75.0); Platelet Count 275 K/mm3 (150-450); Red Blood Count 3.79 M/mm3 (4.2-5.4); Red Cell Distribution Width 16.7 % (11.5-14.0); White Blood Count 8.8 K/mm3 (4.0-10.5)
[2016-06-30 09:49] LABS: Albumin * 2.8 gm/dl (3.4-5.0); BUN/Creatinine Ratio 9.7 (9.0-21.6); Bilirubin, Total 0.2 mg/dL (0.0-1.1); Ca. Corrected For Albumin 9.7 mg/dL (8.4-10.2); Calcium * 9.1 mg/dL (7.9-10.9); Carbon Dioxide 28.6 mmol/L (24-32.6); Potassium 3.6 mmol/L (3.4-4.6); Total Protein 7.4 gm/dL (6.2-8.2)
[2016-06-30] MEDS: CHOLECALCIFEROL 5,000 UNIT TABLET PO SCH (10:07)
[2016-06-30] MEDS: CYANOCOBALAMIN 1,000 MCG TABLET PO SCH (10:07)
[2016-06-30] MEDS: VITAMIN B COMP W-C 1 TAB TABLET PO SCH (10:07)
[2016-06-30] MEDS: ALLOPURINOL 300 MG TABLET PO SCH (10:08)
[2016-06-30] MEDS: SACCHAROMYCES BOULARDII 250 MG CAPSULE PO SCH (10:08)
[2016-06-30] MEDS: CHLORHEXIDINE GLUCONATE 15 ML UDC MM SCH (10:08)
[2016-06-30] MEDS: CEFDINIR 300 MG CAPSULE PO SCH (10:17)
--- NOTE | 2016-06-30 14:12 | DS ---
(1) Gram-negative bacteremia Diagnosis(s): with proteus mirabilis Problem: Acute (2) UTI (urinary tract infection) Problem: Acute Qualifiers: Hematuria presence: with hematuria (3) Hydronephrosis Diagnosis(s): LT sided with perinephric stranding Problem: Acute Qualifiers: Hydronephrosis type: unspecified Qualified Code(s): N13.30 - Unspecified hydronephrosis (4) Fe deficiency anemia Diagnosis(s): with Tsat 5% Problem: Acute Qualifiers: Iron deficiency anemia type: unspecified iron deficiency Qualified Code(s) : D50.9 - Iron deficiency anemia, unspecified (5) Hypertension Diagnosis(s): with CKD stage III GFR 53 ml/min. Problem: Chronic Qualifiers: Hypertension type: essential hypertension Qualified Code(s): I10 - Essential (primary) hypertension (6) Obesity Diagnosis(s): BMI-36.0 Problem: Acute Qualifiers: Obesity type: unspecified obesity type (7) Osteoarthritis Diagnosis(s): with Bilateral TKA, L.S. spine and cervical spine. Problem: Acute Qualifiers: Osteoarthritis location: multiple joints (8) Gout Problem: Chronic Qualifiers: Gout site: unspecified site Chronicity: unspecified Description of Stay: DATE OF ADMISSION: 06/26/2016. DATE OF DISCHARGE: 06/30/2016. DIAGNOSTICS: 1. CT ABDOMEN/PELVIS W AND W/O 06/26/2016. 2. US RT LOWER EXTREMITY 06/26/2016. 3. UROGRAPHY RETROGRADE 06/29/2016. HOSPITAL COURSE: Daisha Garcia is a 76-year-old WF with a H/O HTN, CKD stage III, renal calculi, obesity[BMI 36.0], gout, iron deficiency anemia, OA with bilateral TKA who came into the ER for evaluation of fever, chills LT sided back pain with radiation to LUQ and bilateral lower leg weakness resulting in difficulty in walking. Significant findings were WBC 15.2 K, H/H 10.9/34, BUN/CR 22/1.32, CRP 24.7, HR 117/minute, temp 39C, BP 186/81. CXR negative, UA 500 leukocyte esterase 500 +, WBC 25-50, bacteria 3+. After blood and urine cultures the patient was started on levofloxacin 500 mg IV. She was also given IV fluids. The patient underwent a CT of the abdomen/pelvis W and W/O on 06/26/2016. This revealed bilateral intrarenal calcifications, LT sided perinephric stranding w/ o definable obstructing ureteral stones, mild LT sided hydronephrosis and hydroureter. There was contrast passing into the distal left ureter which argued against high-grade obstruction. Differential diagnoses included recently passed stone, LT sided pyelonephritis, obstruction due to blood clot/ tumor etc. Other findings included multiple bilateral cysts, diffuse urinary bladder thickening due to nondistention/potential cystitis/tumor; 7.5 mm lingular nodule. Urine culture was positive for Proteus mirabilis and 1/ 2 blood cultures was positive for the same. Levofloxacin was increased from 500-750 mg IV daily. Patient was also on probiotics. PT was obtained. Patient was found to be significantly anemic with a T sat of 5% for which she received Venofer 500 mg IV [address] tolerated well[address] Dr[address] Manav Luna [urologist was consulted for the same]. The patient underwent cystoscopy on 06/29/2016 which did not show any tumors/stones or suspicious lesions. Bladder was still with debris and there was evidence of nonspecific cystitis, cystitis cystica type lesions were present. LT ureter looked a little different from RT ureter. Bladder washings were sent for cytology and culture. The patient did undergo retrograde urography on 06/29/2016. "Multiple fluoroscopic spot images of the abdomen and pelvis demonstrates contrast filling of the bilateral ureters and renal pelvis. There are multiple small nodular filling defects identified in the junction of the middle and distal one thirds of the left ureter. These filling defects appear to be fairly stable and multiple images and could represent pleural findings[D/D including potential ureteral tumor versus inflammatory process] instead of air bubbles. Correlate clinically as well as correlate with real-time imaging findings during procedure." Patient tolerated the procedure well she was given IV fluids; labs are relatively normal on 06/30/2016. She is being discharged in a stable condition on Omnicef 300 mg PO BID X 6 days. Patient is to return on 07/06/16 for possible left-sided ureteroscopy, laser lithotripsy biopsy and possible stent placement by Dr. Em. She is to continue to follow with PCP. More than 60 min has been spent in examining the patient, discussing plan of care, prognosis, counseling, reconciliation of medications, preparation and dictating discharge summary. Procedures Performed: see notes below - 1. cystoscopy with bladder washings, bilateral retrograde pyelograms[06/29/2016].2. LT 626 double-J stent placement.[06/19/2016] Results and Findings: Laboratory Tests 06/26/16 06/27/16 06/28/16 06/30/16 00:40 05:00 05:25 09:28 WBC 15.2 H 12.1 H D 8.5 D 8.8 Hgb 10.9 L 9.8 L 9.5 L 11.1 L Hct 34.0 L 31.0 L 29.7 L 34.4 L Plt Count 213 168 176 275 06/26/16 06/27/16 06/28/16 06/30/16 21:05 05:00 05:25 09:28 Plasma Sodium 139 138 139 143 Potassium 3.9 3.9 3.6 Chloride 103 104 105 107 Carbon Dioxide 26.1 27.7 28.6 BUN 16 15 15 11 Creatinine 1.28 1.21 1.07 1.13 Est GFR (Non-Af Amer) 43 L 46 L 53 L 50 Calcium Adj for Albumin 8.9 9.5 9.7 Total Bilirubin 0.4 0.2 AST 28 16 ALT 22 21 Alkaline Phosphatase 82 71 Albumin 2.8 L 2.3 L 2.8 06/26/16 06:05 Iron 14 L TIBC 278 Transferrin % Sat 5 L C-Reactive Prot, Quant 24.7 H Amylase 19 L Lipase 77 Microbiology 06/26/16 00:45 Blood Blood Culture - Final Proteus Mirabilis 06/26/16 00:30 Urine,Catheterized Urine Culture - Final Proteus Mirabilis Discharge Disposition: Home self care Disposition: Home self-care Condition: Undetermined Discharge Activity: Activity as tolerated - ambulate with walker Discharge Diet: Low salt, Low fat/chol, High Fiber - high protein; Referrals: Sridhar Terrazas DO [Primary Care Provider] - Problem Oriented Discharge Instructions to Patient/Family: Kidney Stones, Easy- to-Read Additional Patient Instructions (free text): Please increase water intake daily.[ At least 8 glasses of water of 8 ounces] Tea, coffee did not count. Avoid sodas of all kinds. Elevate lower extremities/feet while sleeping to decrease swelling. You can also buy a wedge to use under your mattress. Reduce salt or sodium intake to less than 2 grams a day which will decrease swelling in the lower extremities. Water pills such as Lasix or furosemide can increase dehydration which will increase kidney stones. Take vitamin D3 every day with food[can be purchased in a bottle of 100 as it is a OTC medication]. Calcium should be obtained from 3 sources of food daily.[ Milk, yogurt, low-fat cheese, spinach, broccoli etc.]. Using a walker at all times to prevent falls. Do not take NSAIDS like motrin, aleve, ibuprofenor regular aspirin. Take only tylenol for pain. Do not take more than a baby aspirin daily. follow up with PCP in 5-7 days . MED CHANGES: Losatan 50 mg daily to twice a day. vitamin D3 5000 units daily. Omnicef 300 mg PO BID #12. POSSIBLE SURGERY WITH DR Rishi EM - 07/06; PLEASE CONFIRM AND GIVE CLEAR INSTRUCTIONS TO PT. Prescriptions (Any new or edited meds): Cefdinir [Omnicef] 300 mg PO BID #12 capsule Cholecalciferol (Vitamin D3) [Vitamin D3] 5,000 unit PO DAILY #100 tablet Losartan Potassium [Cozaar] 50 mg PO BID #60 tablet Complete Home Medications List: Complete Home Medication List: Allopurinol 300 mg PO DAILY 03/03/13 Vitamin B Complex [B Complex] 0.5 each PO DAILY 09/21/13 Chlorhexidine Gluconate [Periogard Oral Rinse 0.12%] 15 ml MM BID 06/26/16 Cyanocobalamin (Vitamin B-12) [Vitamin B12] 5,000 mcg PO DAILY 06/26/16 Cefdinir [Omnicef] 300 mg PO BID #12 capsule 06/30/16 Cholecalciferol (Vitamin D3) [Vitamin D3] 5,000 unit PO DAILY #100 tablet Losartan Potassium [Cozaar] 50 mg PO BID #60 tablet 06/30/16
[2016-06-30 16:22] VITALS: BP 142/75
[2016-06-30] MEDS: ACETAMINOPHEN 325 MG TABLET PO PRN (18:40)
[2016-06-30] MEDS: ENOXAPARIN SODIUM 40 MG/0.4 ML SYRG SC SCH (18:41)
== END 2016-06-30 19:10 | disposition home or self-care (01) | DRG 690 ==
LOC: ER 23:40 → OBSVTOIN 06-26 01:20 → MS 06-26 01:20 → INTOOBSV 06-26 01:20 → OBSVTOIN 06-26 14:48
PROVIDERS: ADMIT Nurse Practitioner Gerontology; ATTEND Internal Medicine
PROC: BT0BYZZ Plain Radiography of Bladder and Urethra using Other Contrast (ICD-10-PCS; 2016-06-29)
PROC: 3E1K88X Irrigation of Genitourinary Tract using Irrigating Substance, Via Natural or Artificial Opening Endoscopic, Diagnostic (ICD-10-PCS; 2016-06-29)
PROC: 0T778DZ Dilation of Left Ureter with Intraluminal Device, Via Natural or Artificial Opening Endoscopic (ICD-10-PCS; principal; 2016-06-29 13:05)
DX: N13.6 Pyonephrosis (principal); N11.1 Chronic obstructive pyelonephritis; R53.1 Weakness; M1A.9XX0 Chronic gout, unspecified, without tophus (tophi); I10 Essential (primary) hypertension; N13.30 Unspecified hydronephrosis; R31.9 Hematuria, unspecified; B96.4 Proteus (mirabilis) (morganii) as the cause of diseases classified elsewhere; D50.9 Iron deficiency anemia, unspecified

== ENCOUNTER 2016-07-06 11:33 | Observation (INO) | payer BC ==
[~2016-07-06 11:33] MED LIST: METOCLOPRAMIDE HCL 5 MG/ML VIAL IV PRN; ONDANSETRON HCL/PF 2 MG/ML VIAL IV PRN; oxyCODONE HCL/ACETAMINOPHEN 1 TAB TABLET PO PRN
--- OUTSIDE RECORDS SUMMARY | 2016-07-06 11:37 | XMS REPORT | Continuity of Care Document ---
:1940 Author Organization [facility] ([facility]) Address [address] [place] [address] Phone [phone] Care Team Providers Name Role Phone Sridhar Terrazas Primary Care Provider [phone] Source Comments This disclosure is being made pursuant to the Care Everywhere program, applicable federal and state laws, and may not contain all informaitonavailable regarding this patient.[facility] ([facility]) Active Allergies and Adverse Reactions Allergen [...] Taken Blood Pressure 152/86 02/10/2016 9:00 AM RN QUALITY Pulse 73 02/10/2016 8:44 AM RN QUALITY Temperature 36.8 C (98.3 F) 02/10/2016 8:44 AM RN QUALITY Respiratory Rate 16 02/10/2016 9:00 AM RN QUALITY Height 1.626 m (5' 4") 02/03/2016 12:05 AM RN QUALITY Weight 115 kg (253 lb 8.5 oz) 02/03/2016 12:05 AM RN QUALITY Body Mass Index 43.5 02/03/2016 12:05 AM RN QUALITY Oxygen Saturation 92% 02/10/2016 8:44 AM RN QUALITY Plan of Care Health Maintenance Due Date [...]
--- OUTSIDE RECORDS SUMMARY | 2016-07-06 11:37 | XMS REPORT | Continuity of Care Document ---
:1940 Author Organization [employer] Address Unavailable [place] [address] Care Team Providers Name Role Phone Gregory Abraham Primary Care Provider [phone] Source Comments This disclosure is being made pursuant to the [employer] program and maynot contain all information available regarding this patient.[employer] Active Allergies and Adverse Reactions Allergen Noted [...] 100 by mouth MCG tablet daily. cholecalciferol 14586 2 times a 24 capsule 0 08/24/2015 Active UNITS capsule weeks for 3 months diphenoxylate-atropin Take 1 tablet 30 tablet 1 05/20/2016 Active e (LOMOTIL) 2.5-0.025 by mouth 4 MG per tablet (four) times daily as needed for Diarrhea. losartan (COZAAR) 100 Take 100 mg Active MG tablet by mouth daily. lisinopril Take 20 mg by Active (PRINIVIL,ZESTRIL) 20 mouth daily. MG tablet allopurinol Take 1 tablet 90 tablet 2 06/15/2016 Active (ZYLOPRIM) 300 MG by mouth tablet daily. furosemide (LASIX) 20 Take 1 tablet 90 tablet 1 06/15/2016 Active MG tablet by mouth daily. oxyCODONE-acetaminoph Take 1 tablet 30 tablet 0 06/30/2016 Active en (PERCOCET) 10-325 by mouth MG per tablet every 8 (eight) hours as needed for Pain. allopurinol Take 300 mg Discontinued (ZYLOPRIM) 300 [...] TABLET BY 7 tablet MOUTH ONCE DAILY oxyCODONE-acetaminoph Take 1 tablet 30 tablet 0 06/15/2016 Discontinued en (PERCOCET) 10-325 by mouth 7 MG per tablet every 8 (eight) hours as needed for Pain. Active Problems Problem Noted Date Essential hypertension, benign 05/23/2016 Anemia of chronic disease 05/23/2016 CKD (chronic kidney disease) 05/23/2016 Mixed hyperlipidemia 05/23/2016 Senile osteoporosis 08/24/2015 Osteoporosis 08/03/2015 Cervical subluxation 03/16/2015 Neck pain 03/16/2015 Cervical spondylosis without myelopathy 03/16/2015 Subluxation of C4-C5 cervical vertebrae 03/16/2015 Most Recent Encounters Date Type Specialty Providers Description 06/30/2016 Refill Family Medicine Sarika Murdock, JONATHAN 06/13/2016 Refill Family Medicine Sridhar Terrazas DO 06/13/2016 Refill Family Medicine Sarika Murdock RN Essential hypertension (Primary Dx); Gout of foot, unspecified cause, unspecified chronicity, unspecified laterality 06/13/2016 Refill Family Sarika Howe RN 06/06/2016 Refill Family Medicine Pamella Salazar [...] 36.3 C (97.4 F) 03/16/2015 1:03 PM [employer] Respiratory Rate 18 03/16/2015 1:03 PM [employer] Height 1.626 m (5' 4") 08/21/2015 9:14 AM CDT Weight 103.874 kg (229 lb) 08/21/2015 9:14 AM CDT Body Mass Index 39.29 08/21/2015 9:14 AM CDT Oxygen Saturation - - Plan of Care Date Type Specialty Providers Description 07/07/2016 Appointment Family Medicine Sridhar Terrazas DO [address] [place] [address] [phone] (Fax) Health Maintenance Due Date Last Done Comments Tetanus/Pertussis (1 - Tdap) 06/15/1959 Well Adult Visit 06/15/1989 Zoster Vaccine 60+ 1999 Pneumococcal Low/Medium Risk 65+ (1 of 2 - PCV13) 06/15/2004 Influenza Immunization (#1) 2015 Mammogram 08/13/2016 08/14/2015 Bone Density Completed 06/25/2015 Results from Last 3 Months Not on file
[2016-07-06] MEDS ORDERED: NORMAL SALINE 1,000 ML IV ONE ×2 (13:00→15:15)
--- NOTE | 2016-07-06 14:23 | OR ---
Operative Report - Dictated Report Narrative: Location: Main OR Anesthesia: General Surgeon: Dr. Em Preoperative diagnosis: Left hydronephrosis and stone Postoperative diagnosis: Same, proximal ureter with focal bullous cystitis cystica, evidence of upper tract pyuria with crit performing of the collecting system and some lower pole stones likely infection related Procedure: #1 Cystoscopy with removal of previously placed double-J stent, placement of new left 5 by multi length double-J stent #2 left flexible ureteroscopy with washing for cytology and culture and with holmium laser lithotripsy and placement of a 5 by multi length double j stent Indications: 76-year-old female admitted for pyelonephritis with CT showing some calcification of the lower pole. No obstructing stone at the time. Underwent cystoscopy with retrogrades and there were shadowing filling defects in the ureter that looked like stones. She was stented and turn the corner rapidly after that with appropriate antibiotics. Presents today for further investigation/diagnosis of the filling defects and potential treatment of some stones. Description: Consent obtained. Patient brought to the operating room where general endotracheal anesthesia was induced. Placed in the dorsal lithotomy position. Prepped and draped. Timeout taken. Rigid cystoscope introduced into the bladder with ease and quick cystoscopy revealed no tumors, stones or suspicious lesions . There was still evidence of resolving cystitis. Stent appeared colonized with bacteria. Bladder was still a bit inflamed. Stent identified grasped pulled per urethra. Bentson wire advanced and removed. Flexible ureteroscope was then used and advanced into the ureter alongside the wire. Filling defects seen in the mid ureter represent very focal blebs of cystitis cystica, they were quite large. The ureter did not appear obstructed in that area there were no other masses. Navigated proximally and there is a subclinical UPJ/tortuosity to the proximal ureter. Upon entering the collecting system on the left there is significant debris/focal pyuria. A few of the calyces have been beat up pretty bad and have some crit performing with some mucosal webbing. In the lower pole is probably the worst and there are some calcified debris embedded within some of those channels. 200 laser fiber was brought in. 0.4 J and 40 Hz was used to fragment the stone and I also went ahead and unroofed some of that weblike networking. This freed up some areas of additional debris. Washing was obtained sent both for cytology and culture. Scope withdrawn down the ureter and again no focal obstruction. Suspect ureter looked that way on CT from chronic infection/pyelonephritis. I am sure the cystitis cystica type lesions also factored into the equation. Given prior pyelonephritis and current picture I elected to replace a stent so 5 by multi length stent was deployed over the safety wire. Specimen: Washing for cytology and culture EBL: 0 ml Condition: tolerated procedure Important findings: Colonized/infected left upper letting system with some evidence of long-term damage i.e. cribriform ring. Focal cystitis cystica type change in the ureter with some permanent dilation of the collecting system. Calcified stone within the lower pole calyx successfully fragmented. Follow-up: I am going to extend her antibiotic therapy for another 7 days. I will then place her on the fan amino prophylaxis. She will follow-up for a catheterized residual/UA in 2 weeks followed by stent removal of the urine sterilize his.
--- OUTSIDE RECORDS SUMMARY | 2016-07-06 18:44 | XMS REPORT | Continuity of Care Document ---
:1940 Author Organization [facility] ([facility]) Address [address] [place] [address] Phone [phone] Care Team Providers Name Role Phone Sridhar Terrazas Primary Care Provider [phone] Source Comments This disclosure is being made pursuant to the Care Everywhere program, applicable federal and state laws, and may not contain all informaitonavailable regarding this patient.[facility] ([facility]) Active Allergies and Adverse Reactions Allergen Noted [...] Taken Blood Pressure 152/86 02/10/2016 9:00 AM COFFEE SAMPLER Pulse 73 02/10/2016 8:44 AM COFFEE SAMPLER Temperature 36.8 C (98.3 F) 02/10/2016 8:44 AM COFFEE SAMPLER Respiratory Rate 16 02/10/2016 9:00 AM COFFEE SAMPLER Height 1.626 m (5' 4") 02/03/2016 12:05 AM COFFEE SAMPLER Weight 115 kg (253 lb 8.5 oz) 02/03/2016 12:05 AM COFFEE SAMPLER Body Mass Index 43.5 02/03/2016 12:05 AM COFFEE SAMPLER Oxygen Saturation 92% 02/10/2016 8:44 AM COFFEE SAMPLER Plan of Care Health Maintenance Due Date [...]
--- OUTSIDE RECORDS SUMMARY | 2016-07-06 18:44 | XMS REPORT | Continuity of Care Document ---
:[address] [facility] [place] [address] Care Team Providers Name Role Phone Gregory Abraham Primary Care Provider [phone] Source Comments This disclosure is being made pursuant to the [employer] program and maynot contain all information available regarding this patient.[facility] Active Allergies and Adverse Reactions Allergen Noted [...] 100 by mouth MCG tablet daily. cholecalciferol 88630 2 times a 24 capsule 0 08/24/2015 [...] Murdock RN 05/23/2016 Abstract Family Medicine Risa Quintainlla RN 05/20/2016 Refill Family Medicine Sarika Murdock [...] 36.3 C (97.4 F) 03/16/2015 1:03 PM [employer] Respiratory Rate 18 03/16/2015 1:03 PM [employer] Height 1.626 m (5' 4") 08/21/2015 9:14 AM CDT Weight 103.874 kg (229 lb) 08/21/2015 9:14 AM CDT Body Mass Index 39.29 08/21/2015 9:14 AM CDT Oxygen Saturation - - Plan of Care Date Type Specialty Providers Description 07/07/2016 Appointment Family Medicine Sridhar Terrazas DO [address] [place] [address] [phone] (Fax) Health Maintenance Due Date Last Done Comments Tetanus/Pertussis (1 - Tdap) 06/15/1958 Well Adult Visit 06/15/1989 Zoster Vaccine 60+ 1999 Pneumococcal Low/Medium Risk 65+ (1 of 2 - PCV13) 06/15/2004 Influenza Immunization (#1) 2015 Mammogram 08/13/2016 08/14/2015 Bone Density Completed 06/25/2015 Results from Last 3 Months Not on file
[2016-07-06] MEDS: NORMAL SALINE 1,000 ML IV PRN ×2 (19:00→22:38)
--- NOTE | 2016-07-06 19:59 | HP ---
Chief Complaint - Chief Complaint Date of Service: 07/06/16 Time of Service: 20:04 Chief Complaint: post op fever History of Present Illness: Pt is a 76 year old female who is being admitted for observation overnight following left kidney stent replacement and lithrotripsy with Dr. Em on . Following procedure pt was noted to be febrile (38.6*C), she was admitted with sepsis the week prior, due to this it was determined it was in her best interest to monitor her overnight. - Patient's Past Medical History Patient History - Medical: Anemia, Arthritis, Chronic Pain, Kidney stone, Obesity, Osteoarthritis, UTI'S, Other Patient History - Cardiac/Respiratory: Hypertension, Other Patient History - Cancer: No Hx of Cancer Patient History - Surgical Procedures: Colonoscopy, D & C, Hysterectomy, Total Knee Replacement, Other, Orthopedic Patient History - Other: None LMP (females 10-50): Menopausal - Family History Mother Family History - Medical: , No pertinent hx Family History - Cardiac/Respiratory: No pertinent hx Family History - Cancer: Endometrial Father Family History - Medical: , No pertinent hx Family History - Cardiac/Respiratory: COPD Family History - Cancer: Lung Brother Family History - Medical: , No pertinent hx, Diabetes Type 2 Family History - Cardiac/Respiratory: Myocardial Infarction Family History - Cancer: Prostate, Other Grandfather-Maternal Family History - Medical: , No pertinent hx Family History - Cardiac/Respiratory: Coronary Heart Disease Family History - Cancer: No pertinent family hx - Social History Living Situations: home Abuse History: No History of abuse Psych History: No pertinent hx Does anyone smoke in the home?: No Smoking Status: Former smoker Have you smoked in the past 12 months: No Alcohol Use: none Drug Use: none - Immunizations Immunizations Up to Date: Yes Hx Pneumococcal Vaccination: Yes History of Influenza Vaccine: Yes Review Of Systems (GEN) - Review of Systems Generalized/Overall Review: Present: Fatigue EENTM: Present: No Symptoms Reported Respiratory: Present: No Symptoms Reported Cardiac: Present: No Symptoms Reported Abdominal: Present: No Symptoms Reported Genitourinary: Present: No Symptoms Reported Musculoskeletal: Present: No Symptoms Reported Neurological: Present: No Symptoms Reported Skin: Present: No Symptoms Reported Endocrine: Present: No Symptoms Reported Immunizations: IMMUNIZATION HX Immunizations Up to Date Yes History of Influenza Vaccine Yes Hx Pneumococcal Vaccination Yes Allergies/Adverse Reactions: Allergies Allergy/AdvReac Type Severity Reaction Status Date / Time phenazopyridine HCl Allergy Unknown Verified 07/06/16 12:03 [From Pyridium] cefuroxime axetil AdvReac Mild Vomiting Verified 07/06/16 12:03 [From Ceftin] codeine [Codeine] AdvReac Mild Vomiting Verified 07/06/16 12:03 hydrochlorothiazide AdvReac Mild INSOMNIA Verified 07/06/16 12:03 iron AdvReac Mild Vomiting Verified 07/06/16 12:03 ketorolac tromethamine AdvReac Mild Vomiting Verified 07/06/16 12:03 [From Toradol] moexipril HCl [From Univasc] AdvReac Mild UPSET Verified 07/06/16 12:03 STOMACH nitrofurantoin AdvReac Mild N/V Verified 07/06/16 12:03 [From Macrobid] nitrofurantoin AdvReac Mild N/V Verified 07/06/16 12:03 macrocrystalline [From Macrobid] NSAIDS (Non-Steroidal AdvReac Mild Vomiting Verified 07/06/16 12:03 Anti-Inflamma Penicillins AdvReac Mild RASH, Verified 07/06/16 12:03 VOMITING Sulfa (Sulfonamide AdvReac Mild Vomiting, Verified 07/06/16 12:03 Antibiotics) RASH [Sulfa(Sulfonamide Antibiotics)] sulfamethoxazole AdvReac Mild N/V Verified 07/06/16 12:03 [From Bactrim] trimethoprim [From Bactrim] AdvReac Mild N/V Verified 07/06/16 12:03 Home Medications: HOME MEDICATIONS Allopurinol 300 mg PO DAILY 03/03/13 [Last Taken 06/25/16] Vitamin B Complex [B Complex] 0.5 each PO BID 09/21/13 [Last Taken 06/25/16] Chlorhexidine Gluconate [Periogard Oral Rinse 0.12%] 15 ml MM BID 06/26/16 [ Last Taken 06/25/16] Cyanocobalamin (Vitamin B-12) [Vitamin B12] 5,000 mcg PO DAILY 06/26/16 [Last Taken 06/25/16] Cefdinir [Omnicef] 300 mg PO BID #12 capsule 06/30/16 [Last Taken Unknown] Cholecalciferol (Vitamin D3) [Vitamin D3] 5,000 unit PO DAILY #100 tablet [Last Taken Unknown] Losartan Potassium [Cozaar] 50 mg PO BID #60 tablet 06/30/16 [Last Taken Unknown ] Ciprofloxacin HCl [Cipro] 250 mg PO BID #20 tablet 07/06/16 [Last Taken Unknown] Exam - Exam Vital Signs: Vital Signs - Last Taken Temp 37.6 C H 07/06/16 18:55 Pulse 103 H 07/06/16 18:55 Resp 20 07/06/16 18:55 BP 158/63 07/06/16 18:55 Pulse Ox 91 RA 07/06/16 18:55 Constitutional: Present: Alert, Oriented x3, Cooperative, No distress, Elderly, Overweight ENT Exam: Present: normal ENT inspection, hearing grossly normal Eye Exam: bilateral eye: normal inspection, PERRL Back Exam: Present: normal inspection, no CVA tenderness Cardiovascular/Chest: Present: normal peripheral pulses, regular rate, rhythm, no chest tenderness, no edema, no gallop, no JVD, no murmur Peripheral Pulses: dorsalis-pedis (R): 1+, dorsalis-pedis (L): 1+, radial (R): 2 +, radial (L): 2+ Abdomen: Present: Normal bowel sounds, soft, nontender, nondistended, no rebound tenderness, no hepatospenomegaly, no masses /Rectal: Present: Exam deferred Extremity: Present: normal range of motion, non-tender, no pedal edema, no calf tenderness, other - chronic dry scaling of BLE Skin Exam: Present: normal color, warm/dry, no cyanosis Lymphatic: Present: no adenopathy Neurologic: Present: no motor/sensory deficits, alert, normal mood/affect, oriented x 3 Appearance: Present: appropriate appearance, appropriate insight, neat, no memory impairment Eye contact: Present: cooperative, good eye contact, normal speech Thoughts: Present: normal thought pattern, no apparent hallucination Assessment/Plan - Assessment/Plan (1) Post-operative state Assessment: Pt stable upon arrival to floor, pain well controlled. No nausea. Per Dr. Em orders: Plan: -oxycodone 1tab PO PRN Q4H for pain -zofran PRN for nausea -NS @75ml/hr -post op VS per protocol -tylenol PRN for fever Problem: Acute (2) HTN (hypertension) Assessment: BP stable, will resume home medications. Continue to monitor overnight. Plan: -VS Q4H -Resume home BP medications Problem: Chronic
[2016-07-06] MEDS: ACETAMINOPHEN 325 MG TABLET PO PRN (21:17)
[2016-07-06] MEDS: VITAMIN B COMP W-C 1 TAB TABLET PO SCH (21:18)
[2016-07-06] MEDS: LOSARTAN POTASSIUM 50 MG TABLET PO SCH (21:18)
[2016-07-07] MEDS: ACETAMINOPHEN 325 MG TABLET PO PRN (06:53)
[2016-07-07] MEDS: VITAMIN B COMP W-C 1 TAB TABLET PO SCH (08:47)
[2016-07-07] MEDS: LOSARTAN POTASSIUM 50 MG TABLET PO SCH (08:49)
[2016-07-07] MEDS ORDERED: CYANOCOBALAMIN 1,000 MCG TABLET PO SCH (09:00)
[2016-07-07] MEDS ORDERED: CHOLECALCIFEROL 5,000 UNIT TABLET PO SCH (09:00)
[2016-07-07] MEDS ORDERED: ALLOPURINOL 300 MG TABLET PO SCH (09:00)
[2016-07-07 10:54] VITALS: BP 151/64
[2016-07-07] MEDS ORDERED: CIPROFLOXACIN HCL 250 MG TABLET PO SCH (11:45)
--- NOTE | 2016-07-07 15:41 | DS ---
(1) Hydronephrosis due to obstruction of ureter Problem: Acute (2) Acute UTI (urinary tract infection) Problem: Acute Description of Stay: Daisha was admitted to observation after urological procedure for ureteral stone with hydronephrosis and prior sepsis. She had a post operative fever and Urology requested observation to monitor over night to make sure that she improved and was not getting septic again. She was monitored over night but did not have any further fevers and felt well. She was discharged to home with post op recommendations from urology. Procedures Performed: see notes below List Procedures: 07/06/16: Cystoscopy with removal and replacement of left ureteral stent and laser lithotripsy. Discharge Disposition: Home self care Disposition: Home self-care Condition: Good Discharge Activity: Activity as tolerated Discharge Diet: Low salt Referrals: Sridhar Terrazas DO [Primary Care Provider] - Manav Luna MD [Family Provider] - Two Weeks Problem Oriented Discharge Instructions to Patient/Family: Lithotripsy, Care After, Lithotripsy Additional Patient Instructions (free text): Follow up in Dr. Manav Gandhi office at the [facility] [address] on 07-20-16 @ 1: 00pm for a nurse visit and the to see Dr. Manav Gandhi on 07-27-16 @ 11:[address] in [address] @ [facility]. Prescriptions (Any new or edited meds): Methenamine Hippurate 1 gm PO BID #60 tablet Complete Home Medications List: Complete Home Medication List: Allopurinol 300 mg PO DAILY 03/03/13 Vitamin B Complex [B Complex] 0.5 each PO BID 09/21/13 Chlorhexidine Gluconate [Periogard Oral Rinse 0.12%] 15 ml MM BID 06/26/16 Cyanocobalamin (Vitamin B-12) [Vitamin B12] 5,000 mcg PO DAILY 06/26/16 Cholecalciferol (Vitamin D3) [Vitamin D3] 5,000 unit PO DAILY #100 tablet Losartan Potassium [Cozaar] 50 mg PO BID #60 tablet 06/30/16 Methenamine Hippurate 1 gm PO BID #60 tablet 07/07/16
== END 2016-07-07 16:30 | disposition home or self-care (01) ==
LOC: AMB 11:33 → MS 18:39
PROVIDERS: ADMIT Family Medicine; ATTEND Family Medicine
PROC: 0T778DZ Dilation of Left Ureter with Intraluminal Device, Via Natural or Artificial Opening Endoscopic (ICD-10-PCS; 2016-07-06)
PROC: 0TF48ZZ Fragmentation in Left Kidney Pelvis, Via Natural or Artificial Opening Endoscopic (ICD-10-PCS; principal; 2016-07-06 13:35)
DX: N13.6 Pyonephrosis (principal); T81.4XXA Infection following a procedure, initial encounter; N20.0 Calculus of kidney; N30.80 Other cystitis without hematuria; B37.41 Candidal cystitis and urethritis; M19.90 Unspecified osteoarthritis, unspecified site; I10 Essential (primary) hypertension; E66.9 Obesity, unspecified; Z87.891 Personal history of nicotine dependence
CPT/HCPCS: 52356; 74420; 76000; 87086; 87106; 88108; 96374; 96375; G0378

== ENCOUNTER 2016-07-27 12:55 | Day surgery (SDC) | payer BC ==
[~2016-07-27 12:55] MED LIST changes: +FLUCONAZOLE 200 MG TABLET PO PRN; +LEVOFLOXACIN/D5W 500 MG/100 ML BAG IV PRN; -METOCLOPRAMIDE HCL 5 MG/ML VIAL IV PRN; -ONDANSETRON HCL/PF 2 MG/ML VIAL IV PRN; -oxyCODONE HCL/ACETAMINOPHEN 1 TAB TABLET PO PRN
--- OUTSIDE RECORDS SUMMARY | 2016-07-27 12:59 | XMS REPORT | Continuity of Care Document ---
:1940 Author Organization [facility] [place] [address] Care Team Providers Name Role Phone Gregory Abraham Primary Care Provider [phone] Source Comments This disclosure is being made pursuant to the [employer] program and maynot contain all information available regarding this patient.[facility] Active Allergies and Adverse Reactions Allergen Noted [...] 15 MG extended 12 H release tablet vitamin B-12 Take 100 mcg Active (CYANOCOBALAMIN) 100 by mouth MCG tablet daily. cholecalciferol 45042 2 times a 24 capsule 0 08/24/2015 [...] 06/15/2016 Active MG tablet by mouth daily. cefdinir (OMNICEF) 06/30/2016 Active 300 MG capsule losartan (COZAAR) 50 Take 100 mg 06/30/2016 Active MG tablet by mouth daily. LYRICA 200 MG capsule Take 1 60 capsule 0 07/12/2016 Active capsule (200 mg total) by mouth 2 (two) times daily. oxyCODONE-acetaminoph Take 1 tablet 90 tablet 0 07/18/2016 Active en (PERCOCET) 10-325 by mouth MG per tablet every 8 (eight) hours as needed for Pain. LYRICA 200 MG capsule Take 200 mg 06/15/2015 Discontinued by mouth 2 7 (two) times daily. oxyCODONE-acetaminoph Take 1 tablet 30 tablet 0 06/15/2016 Discontinued en (PERCOCET) 10-325 by mouth 7 MG per tablet every 8 (eight) hours as needed for Pain. oxyCODONE-acetaminoph Take 1 tablet 30 tablet 0 06/30/2016 Discontinued en (PERCOCET) 10-325 by mouth 7 MG per tablet every 8 (eight) hours as needed for Pain. oxyCODONE-acetaminoph Take 1 tablet 30 tablet 0 07/08/2016 Discontinued en (PERCOCET) 10-325 by mouth 7 [...] Recent Encounters Date Type Specialty Providers Description 07/22/2016 Orders Only Provider, Not In System 07/20/2016 Orders Only Provider, Not In System 07/18/2016 Refill Family Medicine Sarika Murdock RN Kidney stone ( Primary Dx) 07/12/2016 Refill Family Medicine Sarika Murdock RN 07/08/2016 Office Visit Family Medicine Sridhar Terrazas DO Kidney stone ( Primary Dx); Essential hypertension 06/30/2016 Refill Family Medicine Sarika Murdock RN 06/13/2016 Refill Family Medicine Sridhar Terrazas DO [...] Vital Sign Reading Time Taken Blood Pressure 138/70 07/08/2016 1:03 PM CDT Pulse 88 07/08/2016 1:03 PM CDT Temperature 35.9 C (96.7 F) 07/08/2016 1:03 PM CDT Respiratory Rate 16 07/08/2016 1:03 PM CDT Height 1.626 m (5' 4") 08/21/2015 9:14 AM CDT Weight 103.874 kg (229 lb) 08/21/2015 9:14 AM CDT Body Mass Index 39.29 08/21/2015 9:14 AM CDT Oxygen Saturation 98% 07/08/2016 1:03 PM CDT Plan of Care Patient Goal Type Goal Blood Pressure Blood Pressure below 140/90 Date Type Specialty Providers Description 08/08/2016 Appointment Family Medicine Sridhar Terrazas V, [address] [place] [address] [phone] (Fax) Health Maintenance Due Date Last Done Comments Tetanus/Pertussis (1 - Tdap) 06/15/1958 Well Adult Visit 06/15/1989 Zoster Vaccine 60+ 1999 Pneumococcal Low/Medium Risk 65+ (1 of 2 - PCV13) 06/15/2004 Influenza Immunization (#1) 2015 Mammogram 08/13/2016 08/14/2015 Bone Density Completed 06/25/2015 Results from Last 3 Months [place] RETROGRADE PYELOGRAM W WO KUB (07/06/2016)Only the most recent of2 resultswithin the time period is included.
--- OUTSIDE RECORDS SUMMARY | 2016-07-27 13:00 | XMS REPORT | Continuity of Care Document ---
:1940 Author Organization [facility] ([facility]) Address [address] [place] [address] Phone [phone] Care Team Providers Name Role Phone Sridhar Terrazas Primary Care Provider [phone] Source Comments This disclosure is being made pursuant to the Care Everywhere program, applicable federal and state laws, and may not contain all informaitonavailable regarding this patient.[facility] ([facility]) Active Allergies and Adverse Reactions Allergen [...] Taken Blood Pressure 152/86 02/10/2016 9:00 AM STAFF REGISTERED NURSE Pulse 73 02/10/2016 8:44 AM STAFF REGISTERED NURSE Temperature 36.8 C (98.3 F) 02/10/2016 8:44 AM STAFF REGISTERED NURSE Respiratory Rate 16 02/10/2016 9:00 AM STAFF REGISTERED NURSE Height 1.626 m (5' 4") 02/03/2016 12:05 AM STAFF REGISTERED NURSE Weight 115 kg (253 lb 8.5 oz) 02/03/2016 12:05 AM STAFF REGISTERED NURSE Body Mass Index 43.5 02/03/2016 12:05 AM STAFF REGISTERED NURSE Oxygen Saturation 92% 02/10/2016 8:44 AM STAFF REGISTERED NURSE Plan of Care Health Maintenance Due Date [...]
[2016-07-27] MEDS ORDERED: LEVOFLOXACIN 500 MG TABLET PO PRN (13:40)
--- NOTE | 2016-07-27 14:00 | OR ---
Operative Report - Dictated Report Narrative: Preoperative diagnosis: Indwelling stent Postoperative diagnosis: Same, persistent debris and bladder consistent with colonization Anesthesia: None Procedure: Flexible cystoscopy with stent removal Indications: Indwelling stent Descritpion: Consent obtained. Patient prepped and drapped. Lidocaine jelly used to anesthetize urethra. Flexible scope inserted and navigated to bladder. Stent identified, grasped and pulled per urethra. Patient tolerated. EBL: 0 ml Specimen: None Condition: Tolerated procedure Follow-up: I will see her in 2 weeks with ultrasound and catheterized UA with culture to be obtained prior to clinic visit. We'll continue Levaquin for a full week as I think she is probably still colonized. I will then transition her to prophylaxis. She will finish her Diflucan. Instructed to notify us immediately if return of symptomatology on left, fevers chills or severe bladder symptoms with hematuria
[2016-07-27 17:00] VITALS: BP 148/74
== END 2016-07-27 12:56 | disposition home or self-care (01) ==
LOC: AMB 12:55
PROVIDERS: ATTEND Urology
PROC: 0TP98DZ Removal of Intraluminal Device from Ureter, Via Natural or Artificial Opening Endoscopic (ICD-10-PCS; principal; 2016-07-27 14:15)
DX: Z46.6 Encounter for fitting and adjustment of urinary device (principal); I12.9 Hypertensive chronic kidney disease with stage 1 through stage 4 chronic kidney disease, or unspecified chronic kidney disease; N18.3 Chronic kidney disease, stage 3 (moderate); K21.9 Gastro-esophageal reflux disease without esophagitis; D50.9 Iron deficiency anemia, unspecified; I27.82 Chronic pulmonary embolism; E78.00 Pure hypercholesterolemia, unspecified